=== PATIENT | male | born 1960 | race Caucasian/White ===

== ENCOUNTER 2016-10-20 19:27 | Emergency (ER) | payer MEDICARE ==
[2016-10-20 20:05] VITALS: BP 154/90
[2016-10-20] MEDS ORDERED: Ketorolac 60 MG/2 ML SDV IM ONE (21:09)
[2016-10-20] MEDS ORDERED: Baclofen 10 MG Tab PO ONE (21:10)
[2016-10-20] MEDS ORDERED: HYDROmorphone 2 MG Tab PO ONE (21:13)
--- NOTE | 2016-10-20 21:17 | EDM.PDOC ---
ED HPI LOWER BACK PAIN/INJURY - General Chief Complaint: Back Pain or Injury Stated Complaint: R HIP PAIN Time Seen by Provider: 10/20/16 20:50 Source: Reports: Patient History Limitations: Reports: No limitations - History of Present Illness INITIAL COMMENTS - FREE TEXT/NARRATIVE: Patient presents tonight for flare of low back pain with radiation to right hip and posterior right leg to right knee. Rico reports he takes chronic medications for low back pain which include narcotics, muscle relaxants and occasional ibuprofen. He denies injury, strain or sprain to his back or legs. He denies change in function or sensation to genitals or change in bowel/bladder habits. Location: Reports: lower, other (back with radiculopathy. ) Quality: Reports: Ache, Burning Severity: moderate Improves with: Reports: None Worsens with: Reports: Movement Associated Symptoms: Reports: Denies symptoms Treatment(s) REGIONAL ACCOUNT EXECUTIVE: Reports: Other (see below) (Narcotic pain medication. ) - Related Data Allergies/ADRs: Allergies Allergy/AdvReac Type Severity Reaction Status Date / Time No Known Allergies Allergy Verified 04/22/13 10:53 Home Meds: Home Meds Allopurinol [Zyloprim] 300 mg PO DAILY 04/22/13 [History] Cyclobenzaprine HCl [Flexeril] 10 mg PO Q8HR PRN 04/22/13 [History] Gabapentin [Neurontin] 600 mg PO TID 04/22/13 [History] Metoclopramide [Reglan] 10 mg PO Q8HR PRN 04/22/13 [History] Omeprazole 20 mg PO DAILY 04/22/13 [History] Ranitidine [Zantac] 150 mg PO BID 04/22/13 [History] Simvastatin [Zocor] 40 mg PO DAILY 04/22/13 [History] buPROPion HCl [Wellbutrin SR] 150 mg PO BID 04/22/13 [History] diphenhydrAMINE HCl [Diphenhydramine HCl] 50 mg PO BEDTIME PRN 04/22/13 [History ] oxyCODONE HCl/Acetaminophen [Percocet 10-325 MG] 1 each PO Q6HR PRN 04/22/13 [ History] traMADol HCl [Rybix ODT] 50 mg PO Q6H PRN 04/22/13 [History] Past Medical History Cardiovascular History: Reports: High cholesterol Gastrointestinal History: Reports: GERD, PUD Musculoskeletal History: Reports: Back pain, chronic, Gout, Other (see below) Other Musculoskeletal History: Left leg injury causing poor motor control. Degenerative disc disease Neurological History: Reports: Migraines - Past Surgical History GI Surgical History: Reports: Appendectomy, Cholecystectomy Social & Family History - Tobacco Use Smoking Status *Q: Current Every Day Smoker Years of Tobacco use: 40 Packs/Tins Daily: 1 Used Tobacco, but Quit: No Second Hand Smoke Exposure: No - Caffeine Use Caffeine Use: Reports: Coffee - Alcohol Use Days Per Week of Alcohol Use: 0 - Recreational Drug Use Recreational Drug Use: No ED ROS GENERAL - Review of Systems Review Of Systems: See Below Constitutional: Reports: no symptoms. Denies: fever, chills, malaise, weakness , fatigue HEENT: Reports: No symptoms Respiratory: Reports: No Symptoms Cardiovascular: Reports: No symptoms. Denies: Chest pain, Dyspnea on exertion, Edema, Palpitations, PND, Syncope Endocrine: Reports: no symptoms GI/Abdominal: Reports: No symptoms. Denies: Abdominal pain, Black stool, Bloody stool, Nausea, Vomiting : Reports: no symptoms. Denies: dysuria, flank pain, frequency, hematuria, incontinence, pain, urinary retention Musculoskeletal: Reports: other (low back pain with radiation to right hip and right posterior thigh. ) Neurological: Reports: No Symptoms. Denies: Headache, Numbness, Paresthesia, Tingling, Weakness, Gait Disturbance Psychiatric: Reports: No symptoms Hematologic/Lymphatic: Reports: no symptoms Immunologic: Reports: no symptoms ED EXAM,LOWER BACK PAIN/INJURY - Physical Exam Exam: See Below Exam Limited By: No limitations General Appearance: alert, WD/WN, no apparent distress Eye Exam: bilateral eye: normal inspection Head: atraumatic, normocephalic Neck: normal inspection, supple, non-tender, full range of motion Respiratory/Chest: no respiratory distress, lungs clear, normal breath sounds, no accessory muscle use, chest non-tender Cardiovascular: normal peripheral pulses, regular rate, rhythm, no edema, no gallop, no murmur, no rub GI/Abdominal: normal bowel sounds, soft, non tender, no organomegaly, no distention, no abnormal bruit, no mass Back Exam: normal inspection, decreased range of motion, muscle spasm, other ( No foot drop, loss of sensation noted to bilateral lower extremities. He does ambulate with a limping gait with transfer from stretcher to standing and walking. No unsteadiness noted. ). No: CVA tenderness (R), CVA tenderness (L), paraspinal tenderness, vertebral tenderness Neurological: alert, normal mood/affect, normal dorsiflexion, CN II-XII intact, normal plantar flexion, no motor/sensory deficits, oriented x 3, tremor. No: difficulty walking DTR - Lower Extremities: 2+: knee (R), knee (L) Psychiatric: normal affect, normal mood Skin Exam: Warm, Dry, Intact, Normal color, No rash Lymphatic: no adenopathy Course - Vital Signs Last Recorded V/S: Last Vital Signs Temp 37.1 C 10/20/16 19:50 Pulse 102 H 10/20/16 19:50 Resp 18 10/20/16 19:50 BP 154/90 H 10/20/16 19:50 Pulse Ox 94 L 10/20/16 19:50 - Orders/Labs/Meds Meds: Medications Discontinued Medications Generic Name Dose Route Start Last Admin Trade Name Lennie PRN Reason Stop Dose Admin Baclofen 10 mg 10/20/16 21:10 10/20/16 21:21 Lioresal PO 10/20/16 21:11 10 mg ONETIME ONE Administration Hydromorphone HCl 2 mg 10/20/16 21:13 10/20/16 21:21 Dilaudid PO 10/20/16 21:14 2 mg ONETIME ONE Administration Ketorolac Tromethamine 60 mg 10/20/16 21:09 10/20/16 21:22 Toradol IM 10/20/16 21:10 60 mg ONETIME ONE Administration - Re-Assessments/Exams Free Text/Narrative Re-Assessment/Exam: 10/20/16 22:09 Patient denies routine use of NSAID. He does report taking "double my pain pills" with a flare of pain. This results with a decrease in doses in the days following the pain flare due to his pain contract and not being able to fill prescriptions early. Rico was provided education for proper management and instruction to follow up with Dr. Martinez to review his status. Departure - Departure Time of Disposition: 21:50 Disposition: Home, Self-Care 01 Condition: fair Clinical Impression: Chronic back pain Instructions: Chronic Back Pain Referrals: Elijah Martinez MD [Primary Care Provider] - Forms: ED Department Discharge Additional Instructions: Patient will follow up with Dr. Martinez tomorrow or as early this week that he is able. He will notify Dr. Martinez that he has been taking more of his chronic pain medication for flare-ups. Rico will stop use of ibuprofen and cyclobenzaprine. He will start use of Naproxen 500mg PO twice per day. He will start use of Baclofen 5mg PO three times a day for seven days, then Baclofen 10mg PO three times a day. He may use rest, ice, heat and stretching for his pain. He will need to obtain additional pain medication, muscle relaxant from Dr. Martinez.
== END 2016-10-20 22:20 | disposition home or self-care (01) ==
LOC: JP.ED 19:27
DX: M54.9 Dorsalgia, unspecified (principal); G89.29 Other chronic pain; E78.00 Pure hypercholesterolemia, unspecified; K21.9 Gastro-esophageal reflux disease without esophagitis; F17.210 Nicotine dependence, cigarettes, uncomplicated; Z90.49 Acquired absence of other specified parts of digestive tract; Z79.899 Other long term (current) drug therapy
CPT/HCPCS: 96372; 99283; A9270; J1885; 99284

== ENCOUNTER 2017-05-13 08:30 | Inpatient (IN) | payer MEDICARE ==
[2017-05-13] MEDS ORDERED: Lactated Ringers 1,000 ML IV SCH (10:00)
[2017-05-13] MEDS ORDERED: Scopolamine 1.5 MG Transdermal Patch TOP SCH (10:00)
[2017-05-13] MEDS ORDERED: Gabapentin 300 MG Cap PO ONE (10:00)
[2017-05-13] MEDS ORDERED: Propofol 200 MG/20 ML SDV ONE ×2 (10:27→12:54)
[2017-05-13] MEDS ORDERED: Ondansetron 4 MG/2 ML SDV ONE (10:27)
[2017-05-13] MEDS ORDERED: Succinylcholine 200 MG/10 ML MDV ONE (10:27)
[2017-05-13] MEDS ORDERED: Dexamethasone 4 MG/ML SDV ONE (10:27)
[2017-05-13] MEDS ORDERED: Rocuronium 50 MG/5 ML Vial ONE ×2 (10:27→14:10)
[2017-05-13] MEDS ORDERED: ceFAZolin 2 GM in Premix Bag 1 BAG IV ONE (11:00)
[2017-05-13] MEDS ORDERED: ceFAZolin 2 GM in Sodium Chloride 0.9% 50 ML IV ONE (11:00)
[2017-05-13] MEDS ORDERED: Ketamine 500 MG/5 ML MDV IV SCH (11:15)
[2017-05-13] MEDS ORDERED: Ropivacaine 49.25 ML, Ketorolac 30 MG, EPINEPHrine 0.5 MG, cloNIDine 80 MCG, Sodium Chl... INJECT ONE ×5 (11:15)
[2017-05-13] MEDS ORDERED: Thrombin (Bovine) 5,000 Unit Kit ONE (12:20)
[2017-05-13] MEDS ORDERED: Povidone-Iodine 10% Soln 118.25 ML Bottle ONE (12:20)
[2017-05-13] MEDS: Tranexamic Acid 1,000 MG in Sodium Chloride 0.9% 50 ML IV SCH ×3 (13:30→16:03)
[2017-05-13] MEDS ORDERED: Glycopyrrolate 0.2 MG/ML 5 ML MDV ONE (14:11)
[2017-05-13] MEDS ORDERED: Neostigmine Methylsulfate 1 MG/ML 5 ML Syringe ONE (14:11)
[2017-05-13] MEDS ORDERED: Lactated Ringers 1,000 ML ONE (14:34)
[2017-05-13] MEDS ORDERED: Zolpidem 5 MG Tab PO PRN (15:05)
[2017-05-13] MEDS ORDERED: Naloxone 0.4 MG/ML SDV IVPUSH PRN (15:05)
[2017-05-13] MEDS ORDERED: Aluminum Hydroxide/Magnesium Hydroxide/Simethicone Susp 30 ML Cup PO PRN (15:05)
[2017-05-13] MEDS ORDERED: Magnesium Hydroxide 400 MG/5 ML Susp 30 ML Cup PO PRN (15:05)
[2017-05-13] MEDS ORDERED: HYDROmorphone 1 MG/ML Syringe IVPUSH PRN (15:05)
[2017-05-13] MEDS ORDERED: DIPHENHYDRAMINE HCL 50 MG PO PRN (15:07)
[2017-05-13] MEDS: Ondansetron 4 MG/2 ML SDV IVPUSH PRN ×2 (15:12→22:24)
[2017-05-13] MEDS ORDERED: Acetaminophen 1,000 MG in Premix Bag 1 BAG IV ONE (15:15)
[2017-05-13] MEDS ORDERED: ceFAZolin 1 GM in Sodium Chloride 0.9% 50 ML IV SCH (15:15)
[2017-05-13] MEDS ORDERED: diphenhydrAMINE 25 MG Cap PO PRN (15:45)
[2017-05-13] MEDS: oxyCODONE 5 MG Tab PO PRN ×2 (17:08→21:28)
--- NOTE | 2017-05-13 18:32 | OR ---
DATE OF PROCEDURE: 05/13/2017 PREOPERATIVE DIAGNOSES: 1. L4-L5 stenosis. 2. Morbid obesity. POSTOPERATIVE DIAGNOSES: 1. L4-L5 stenosis. 2. Morbid obesity. PROCEDURES: 1. L4-L5 laminectomy. 2. Extended case secondary to morbid obesity. 3. Use of operating microscope. AMMUNITION ASSEMBLY LABORER: ROB Ho. Physician retail store assistant, Shiloh Elmore NP, played an essential role in assisting in this case, helping to position the patient, retract structures as needed, as well as suturing and cutting sutures as indicated. Her presence improved patient's safety and decreased operative time. ANESTHESIA: General endotracheal intubation. FLUID: Lactated Ringer solution. ESTIMATED BLOOD LOSS: 25 mL. COMPLICATIONS: None. SPECIMEN: None. DISCHARGE DISPOSITION: Stable to PACU. INDICATION FOR THE PROCEDURE: The patient was seen preoperatively in the clinic. He had been to multiple surgeons. He had failed nonoperative treatment. Preoperative imaging confirmed the above-mentioned diagnosis. Risks and benefits of the procedure were explained to the patient. Informed consent was obtained. DETAILS OF PROCEDURE: The patient was seen preoperatively by myself and the Anesthesia staff in the preoperative holding area where the operative site was marked. He was brought to the operative suite by the anesthesia staff where general anesthesia was administered. He had a sterile Manuel catheter placed which was removed right after the end of the case. He was flipped into a prone position on the Anup table. All extremities were found to be well padded. The bed was then flexed. The patient was then prepped and draped in a sterile manner. Time-out was called identifying the correct patient, correct procedure, the correct site, and antibiotics had begun within appropriate period of time. AP and lateral fluoroscopy were used to visualize the pedicles of L4 and L5. A midline incision was made over the processes of L4 and L5 and carried down to the deep fascia. Bleeding was controlled during the case with Bovie electrocautery as well as an Aquamantys 5.3, and then Cerebellar was used for retraction. After we encountered the deep fascia, bleeding was controlled with Bovie electrocautery and we then used a Franco elevator to go down over the spinous processes of L4 and L5 and over the respective lamina down to the level of the facets. I then inserted two 85 mm blades for retraction on the Versa-Trac and then removed any soft tissue off the lamina of L4 and L5. I then identified the interspinous space at L4- L5 and then removed the interspinous ligament and removed the inferior aspect of the spinous process of L4 down and then with rongeurs, I was able to remove the caudal 3/4 of the L4 lamina. I then used Kerrison rongeurs to remove the remainder of the lamina on the right side of the ligamentum flavum using Kerrison rongeurs of the long ball protecting the dura with cottonoid. I then did a medial facetectomy at L4-L5 on the right and was barely able to pass the long ball through the L4-L5 foramen. I then drilled down on the dorsal aspect of the medial portion of the facet, so that I could bite more of the foramen and then using #2 and #3 Kerrisons, went into the foramen more. I then used foraminal rasps at that point to end of the foramen. After the foraminal rasps had been used and the foramen was widened, I then used the operating microscope to carefully visualize the lateral aspect of the dura. It was very bulbous, I could see the exiting L5 root and just the caudal portion of the exiting L4 root. I used a Kerrison to remove a little bit more of that bone around the foramen and provided more room for the exiting L4 root. I was able to find some disk material which was free-floating and then was able to find a rent in the annulus on the right at L4-L5 in the disk space. I was then able to go in the disk space with a little bit of free disk and using a long ball, felt for any other free disk material using straight pituitaries as well as a Peapod pituitary. After this had been accomplished, I then copiously irrigated with 2 L of Betadine infused irrigation and applied FloSeal to the epidural space and then tamped any excess away with a Ray-Petra and then applied Gelfoam powder. We then closed with #1 Stratafix, followed by #2 Stratafix, followed by 3-0 Stratafix, followed by sterile dressing. The patient was then flipped back into his hospital bed in supine position. The Manuel catheter was removed. He was allowed to go to PACU in stable condition. Fredi Bangura DO /[id number]
[2017-05-13] MEDS: Gabapentin 300 MG Cap PO SCH (20:02)
[2017-05-13] MEDS: Sennosides 8.6 MG Tab PO PRN (20:02)
[2017-05-13] MEDS: Diazepam 5 MG Tab PO PRN (20:02)
[2017-05-13] MEDS: ceFAZolin 2 GM in Sodium Chloride 0.9% 50 ML IV SCH (20:02)
[2017-05-13] MEDS: buPROPion 150 MG Tab.SR PO SCH (20:03)
[2017-05-14] MEDS: oxyCODONE 5 MG Tab PO PRN ×2 (02:06→06:00)
[2017-05-14] MEDS: ceFAZolin 2 GM in Sodium Chloride 0.9% 50 ML IV SCH ×2 (03:34→11:04)
[2017-05-14] MEDS: Diazepam 5 MG Tab PO PRN (04:35)
[2017-05-14] MEDS ORDERED: Pantoprazole 40 MG Tab.CR PO SCH (07:30)
[2017-05-14] MEDS: Gabapentin 300 MG Cap PO SCH (08:33)
[2017-05-14] MEDS: buPROPion 150 MG Tab.SR PO SCH (08:33)
[2017-05-14] MEDS ORDERED: Allopurinol 300 MG Tab PO SCH (09:00)
[2017-05-14] MEDS ORDERED: Simvastatin 20 MG Tab PO SCH ×2 (09:00→17:00)
[2017-05-14] MEDS ORDERED: Acetaminophen/oxyCODONE 325-5 MG Tab PO PRN (10:30)
[2017-05-14] MEDS: Sennosides 8.6 MG Tab PO PRN (10:51)
[2017-05-14 11:02] VITALS: BP 125/63
--- NOTE | 2017-05-15 10:05 | PCM.DCSUM1 ---
Discharge Summary - Hospital Course Free Text/Narrative:: Patient is status postop day 1 of a lumbar laminectomy. He is doing very well. Patient is ablated with going difficulties. Pain is under control with oral pain medication. - Discharge Data Discharge Date: 05/14/17 Discharge Disposition: Home, Self-Care 01 Condition: Good - Patient Summary/Data Consults: Consultations 05/13/17 15:05 OT Evaluation and Treatment [CONS] Routine Please Evaluate and Treat. OT Reason for Consult: Strengthening This query below is only for informational purposes and is not editable. PT Evaluation and Treatment [CONS] Routine Please Evaluate and Treat. PT Reason for Consult: Strengthening This query below is only for informational purposes and is not editable. - Patient Instructions Diet: Usual Diet as Tolerated Driving: Do Not Drive Showering/Bathing: May Shower, No Tub Bathing/Swimming Wound/Incision Care: Keep Operative Site/Wound Site Clean and Dry, Change Dressing Daily Notify Provider of: Fever, Increased Pain, Swelling and Redness, Drainage, Nausea and/or Vomiting - Discharge Plan Prescriptions/Med Rec: Acetaminophen/oxyCODONE [Percocet 325-5 MG] 1 - 2 tab PO Q4H PRN #90 tablet PRN Reason: Pain Home Medications: Home Meds Allopurinol [Zyloprim] 300 mg PO DAILY 04/22/13 [History] Cyclobenzaprine HCl [Flexeril] 10 mg PO Q8HR PRN 04/22/13 [History] Gabapentin [Neurontin] 600 mg PO TID 04/22/13 [History] Metoclopramide [Reglan] 10 mg PO Q8HR PRN 04/22/13 [History] Omeprazole 20 mg PO DAILY 04/22/13 [History] Ranitidine [Zantac] 150 mg PO BID 04/22/13 [History] Simvastatin [Zocor] 40 mg PO DAILY 04/22/13 [History] buPROPion HCl [Wellbutrin SR] 150 mg PO BID 04/22/13 [History] diphenhydrAMINE HCl [Diphenhydramine HCl] 50 mg PO BEDTIME PRN 04/22/13 [History ] oxyCODONE HCl/Acetaminophen [Percocet 10-325 MG] 1 each PO Q6HR PRN 04/22/13 [ History] traMADol HCl [Rybix ODT] 50 mg PO Q6H PRN 04/22/13 [History] Acetaminophen/oxyCODONE [Percocet 325-5 MG] 1 - 2 tab PO Q4H PRN #90 tablet [Rx] Patient Handouts: Acetaminophen; Oxycodone tablets, Preventing Constipation After Surgery, Lumbar Laminectomy, Care After Referrals: Fredi Bangura DO [Physician] - 05/26/17 9:00 am - Discharge Summary/Plan Comment DC Time >30 min.: Yes Discharge Summary/Plan Comment: At this time we'll DC the patient to home per self-care. He will continue with oral pain medication. I will send him home on Percocet. He is to follow-up in [address] Bangura. He is to notify us if he has any other issues in the meantime. - Patient Data Vitals - Most Recent: Last Vital Signs Temp 37.7 C 05/14/17 10:59 Pulse 95 05/14/17 10:59 Resp 18 05/14/17 10:59 BP 125/63 05/14/17 10:59 Pulse Ox 98 05/14/17 10:59 Weight - Most Recent: 265 lb 6.4 oz Med Orders - Current: Current Medications Discontinued Medications Al Hydroxide/Mg Hydroxide (Mag-Al Plus) 30 ml PO Q4H PRN PRN Reason: Indigestion Allopurinol (Zyloprim) 300 mg PO DAILY [facility] Last Admin: 05/14/17 08:33 Dose: 300 mg Bupropion HCl (Wellbutrin Sr) 150 mg PO BID [facility] Last Admin: 05/14/17 08:33 Dose: 150 mg Ropivacaine 49.25 ml/Ketorolac Tromethamine 30 mg/Epinephrine HCl 0.5 mg/ Clonidine HCl 80 mcg/ Sodium Chloride 48.45 ml 0 ml INJECT ONETIME ONE Stop: 05/13/17 11:16 Last Admin: 05/13/17 14:31 Dose: 100 ml Dexamethasone (Dexamethasone) Confirm Administered Dose 4 mg .ROUTE .STK-MED ONE Stop: 05/13/17 10:28 Diazepam (Valium.) 5 mg PO Q6H PRN PRN Reason: Spasms Last Admin: 05/14/17 04:35 Dose: 5 mg Diphenhydramine HCl (Benadryl) 50 mg PO BEDTIME PRN PRN Reason: Sedation Last Admin: 05/14/17 00:05 Dose: 50 mg Fentanyl Citrate (Fentanyl) Confirm Administered Dose 500 mcg .ROUTE .STK-MED ONE Stop: 05/13/17 10:27 Gabapentin (Neurontin) 300 mg PO ONETIME ONE Stop: 05/13/17 10:01 Last Admin: 05/13/17 09:57 Dose: 300 mg Gabapentin (Neurontin) 600 mg PO TID [facility] Last Admin: 05/14/17 08:33 Dose: 600 mg Glycopyrrolate (Robinul) Confirm Administered Dose 1 mg .ROUTE .STK-MED ONE Stop: 05/13/17 14:12 Hydromorphone HCl (Dilaudid) 1 mg IVPUSH Q2H PRN PRN Reason: Pain Stop: 05/14/17 15:05 Last Admin: 05/14/17 00:05 Dose: 1 mg Lactated Ringer's (Ringers, Lactated) 1,000 mls @ 0 mls/hr IV ASDIRECTED [facility] PRN Reason: KVO Last Admin: 05/13/17 09:58 Dose: 100 mls/hr Cefazolin Sodium 2 gm/ Sodium (Chloride) 50 mls @ 100 mls/hr IV ONETIME ONE Stop: 05/13/17 11:29 Last Admin: 05/13/17 12:58 Dose: 100 mls/hr Tranexamic Acid 1,000 mg/ (Sodium Chloride) 60 mls @ 240 mls/hr IV Q3H [facility] Stop: 05/13/17 14:29 Last Admin: 05/13/17 16:03 Dose: Not Given Ketamine HCl 100 mg/ Sodium (Chloride) 100 mls @ 21 mls/hr IV ASDIRECTED [facility] Lactated Ringer's (Ringers, Lactated) Confirm Administered Dose 1,000 mls @ as directed .ROUTE .STK-MED ONE Stop: 05/13/17 14:35 Acetaminophen 1,000 mg/ Premix 100 mls @ 400 mls/hr IV NOW ONE Stop: 05/13/17 15:29 Last Admin: 05/13/17 15:15 Dose: 400 mls/hr Cefazolin Sodium 1 gm/ Sodium (Chloride) 50 mls @ 100 mls/hr IV Q8H [facility] Stop: 05/14/17 07:44 Cefazolin Sodium 2 gm/ Sodium (Chloride) 50 mls @ 100 mls/hr IV Q8H [facility] Stop: 05/14/17 12:29 Last Admin: 05/14/17 11:04 Dose: 100 mls/hr Ketamine HCl (Ketalar) 35 mg IV ASDIRECTED [facility] Magnesium Hydroxide (Milk Of Magnesia) 30 ml PO BID PRN PRN Reason: Constipation Naloxone HCl (Narcan) 0.2 mg IVPUSH ASDIRECTED PRN PRN Reason: Oversedation Stop: 05/13/17 23:45 Neostigmine Methylsulfate (Neostigmine) Confirm Administered Dose 5 mg .ROUTE .STK-MED ONE Stop: 05/13/17 14:12 Ondansetron HCl (Zofran) Confirm Administered Dose 4 mg .ROUTE .STK-MED ONE Stop: 05/13/17 10:28 Ondansetron HCl (Zofran) 8 mg IVPUSH Q4H PRN PRN Reason: Nausea/Vomiting Last Admin: 05/13/17 22:24 Dose: 8 mg Oxycodone HCl (Oxycodone) 10 mg PO Q4H PRN PRN Reason: Pain Stop: 05/14/17 15:05 Last Admin: 05/14/17 06:00 Dose: 10 mg Oxycodone/Acetaminophen (Percocet 325-5 Mg) 2 tab PO Q4H PRN PRN Reason: Pain Last Admin: 05/14/17 10:51 Dose: 2 tab Pantoprazole Sodium (Protonix) 40 mg PO ACBREAKFAST [facility] Last Admin: 05/14/17 08:33 Dose: 40 mg Povidone Iodine (Betadine 10% Soln) Confirm Administered Dose 1 ml .ROUTE .STK- MED ONE Stop: 05/13/17 12:21 Propofol (Diprivan 20 Ml) Confirm Administered Dose 200 mg .ROUTE .STK-MED ONE Stop: 05/13/17 10:28 Propofol (Diprivan 20 Ml) Confirm Administered Dose 400 mg .ROUTE .STK-MED ONE Stop: 05/13/17 12:55 Ranitidine HCl (Zantac) 150 mg PO BID [facility] Last Admin: 05/14/17 08:33 Dose: 150 mg Rocuronium Howe (Zemuron) Confirm Administered Dose 50 mg .ROUTE .STK-MED ONE Stop: 05/13/17 10:28 Rocuronium Howe (Zemuron) Confirm Administered Dose 50 mg .ROUTE .STK-MED ONE Stop: 05/13/17 14:11 Scopolamine (Transderm-Scop) 1.5 mg TOP Q72H [facility] Stop: 05/16/17 03:00 Last Admin: 05/13/17 10:19 Dose: 1.5 mg Senna (Senna) 8.6 mg PO BID PRN PRN Reason: Constipation Last Admin: 05/14/17 10:51 Dose: 8.6 mg Simvastatin (Zocor) 40 mg PO DAILY CHE Simvastatin (Zocor) 40 mg PO QPM [facility] Succinylcholine Chloride (Quelicin) Confirm Administered Dose 200 mg .ROUTE .STK -MED ONE Stop: 05/13/17 10:28 Thrombin (Thrombin-Jmi) Confirm Administered Dose 15,000 unit .ROUTE .STK-MED ONE Stop: 05/13/17 12:21 Last Admin: 05/13/17 13:40 Dose: 10,000 unit Zolpidem Tartrate (Ambien) 5 mg PO BEDTIME PRN PRN Reason: Sleep Last Admin: 05/13/17 21:37 Dose: 5 mg - Exam General: Reports: Alert Back Exam: Reports: Normal Inspection Extremities: Normal Inspection, Normal Range of Motion, No Pedal Edema, Normal Capillary Refill Skin: Reports: Warm, Dry, Intact Wound/Incisions: Reports: Healing Well, Dressing Dry and Intact Neurological: Reports: No New Focal Deficit, Normal Gait, Strength Equal Bilateral, Reflexes Equal Bilateral Psy/Mental Status: Reports: Alert *Q Meaningful Use (DIS) - VTE *Q VTE Criteria *Q: - Stroke *Q Stroke Criteria *Q: - AMI *Q AMI Criteria *Q:
== END 2017-05-14 13:30 | disposition home or self-care (01) | DRG 517 ==
LOC: EDSTATUS 08:30 → JP.MS 09:17 → JP.SDS 09:17 → JP.MS 15:45
PROVIDERS: ADMIT Orthopaedic Surgery; ATTEND Orthopaedic Surgery
PROC: 0QB00ZZ Excision of Lumbar Vertebra, Open Approach (ICD-10-PCS; principal; 2017-05-13)
DX: M48.061 Spinal stenosis, lumbar region without neurogenic claudication (principal); E66.01 Morbid (severe) obesity due to excess calories; Z68.39 Body mass index [BMI] 39.0-39.9, adult; F17.210 Nicotine dependence, cigarettes, uncomplicated; G89.29 Other chronic pain; K21.9 Gastro-esophageal reflux disease without esophagitis; M10.9 Gout, unspecified; E78.5 Hyperlipidemia, unspecified
CPT/HCPCS: 97116-GP; 97161-GP; 97530-GP; A9270-GY; J0131; J0171; J0330; J0690; J0735; J1100; J1170; J1885; J2405; J2704; J2710; J2795; J3010; J7030; J7050; J7120

== ENCOUNTER 2017-10-25 17:07 | Emergency (ER) | payer MEDICARE ==
[2017-10-25 17:18] VITALS: BP 186/96
--- NOTE | 2017-10-25 18:36 | EDM.PDOC ---
ED HPI GENERAL MEDICAL PROBLEM - General Chief Complaint: Neuro Symptoms/Deficits Stated Complaint: SLURRING WORDS Time Seen by Provider: 10/25/17 17:20 Source of Information: Reports: Patient History Limitations: Reports: No Limitations - History of Present Illness INITIAL COMMENTS - FREE TEXT/NARRATIVE: 57-year-old male who for the past 4 hours has had right-sided weakness, dysarthria, and dizziness. It started roughly 4 hours ago with mild dizziness and just general malaise so he decided to lay down for a while. When he woke at 2:30, symptoms were not better in fact now he has developed discoordination of his right arm, weakness of the arm and leg, and slurred speech. No visual complaints or headache. When symptoms persisted he decided to come in and have it checked out. Onset: Gradual Duration: Hour(s): (Symptoms have been ongoing for the past 4 or 5 hours) Severity: Moderate Associated Symptoms: Reports: Other (Has chronic back pain). Denies: Fever/ Chills, Shortness of Breath general Pain Score (Numeric/FACES): 4 - Related Data Allergies Allergy/AdvReac Type Severity Reaction Status Date / Time No Known Allergies Allergy Verified 10/25/17 17:13 Home Meds: Home Meds Allopurinol [Zyloprim] 300 mg PO DAILY 04/22/13 [History] Cyclobenzaprine HCl [Flexeril] 10 mg PO Q8HR PRN 04/22/13 [History] Gabapentin [Neurontin] 600 mg PO TID 04/22/13 [History] Metoclopramide [Reglan] 10 mg PO Q8HR PRN 04/22/13 [History] Omeprazole 20 mg PO DAILY 04/22/13 [History] Ranitidine [Zantac] 150 mg PO BID 04/22/13 [History] Simvastatin [Zocor] 40 mg PO DAILY 04/22/13 [History] buPROPion HCl [Wellbutrin SR] 150 mg PO BID 04/22/13 [History] diphenhydrAMINE HCl [Diphenhydramine HCl] 50 mg PO BEDTIME PRN 04/22/13 [History ] oxyCODONE HCl/Acetaminophen [Percocet 10-325 MG] 1 each PO Q6HR PRN 04/22/13 [ History] traMADol HCl [Rybix ODT] 50 mg PO Q6H PRN 04/22/13 [History] Past Medical History HEENT History: Reports: Impaired Vision Cardiovascular History: Reports: High Cholesterol Respiratory History: Reports: Sleep Apnea Gastrointestinal History: Reports: Cholelithiasis, GERD, PUD Genitourinary History: Reports: Renal Calculus Musculoskeletal History: Reports: Other (See Below) Other Musculoskeletal History: s/p Laminectomy 05/13/17 Neurological History: Reports: Migraines Endocrine/Metabolic History: Reports: Obesity/BMI 30+ - Infectious Disease History Infectious Disease History: Reports: Chicken Pox - Past Surgical History HEENT Surgical History: Reports: None Cardiovascular Surgical History: Reports: None Respiratory Surgical History: Reports: None GI Surgical History: Reports: Appendectomy, Cholecystectomy, Colonoscopy, EGD Male Surgical History: Reports: None Endocrine Surgical History: Reports: None Neurological Surgical History: Reports: Lumbar Spine Musculoskeletal Surgical History: Reports: None Social & Family History - Tobacco Use Smoking Status *Q: Current Every Day Smoker Years of Tobacco use: 40 Packs/Tins Daily: 0.5 Used Tobacco, but Quit: No Month/Year Tobacco Last Used: April Second Hand Smoke Exposure: Yes - Caffeine Use Caffeine Use: Reports: Coffee, Soda, Tea - Alcohol Use Days Per Week of Alcohol Use: 0 - Recreational Drug Use Recreational Drug Use: No ED ROS GENERAL - Review of Systems Review Of Systems: See Below Constitutional: Denies: Fever, Chills, Malaise HEENT: Denies: Vision Change Respiratory: Denies: Shortness of Breath GI/Abdominal: Denies: Abdominal Pain, Nausea, Vomiting : Reports: No Symptoms Musculoskeletal: Reports: Back Pain Skin: Reports: No Symptoms Neurological: Reports: Dizziness, Change in Speech (No aphasia, does have dysarthria), Other (Reproducible weakness of the right arm and leg compared to the left, with right facial weakness). Denies: Headache Psychiatric: Reports: No Symptoms ED EXAM, NEURO - Physical Exam Exam: See Below Exam Limited By: No Limitations General Appearance: Alert, No Apparent Distress, Anxious Eye Exam: Bilateral Eye: EOMI, Other (There was mild right visual field deficit) Throat/Mouth: Other (Right perioral and periorbital muscles were weaker with some right facial droop.) Head Exam: Atraumatic Neck: Normal Inspection Respiratory/Chest: No Respiratory Distress, Lungs Clear Cardiovascular: Regular Rate, Rhythm GI/Abdominal: Non-Tender Neurological: Alert, Normal Mood/Affect, Other (Patient had reproducible weakness of the right arm and leg compared to the left) Psychiatric: Normal Affect, Normal Mood Skin Exam: Warm, Dry EKG INTERPRETATION Rhythm: NSR Course - Vital Signs Last Recorded V/S: Last Vital Signs Temp 98.2 F 10/25/17 17:21 Pulse 106 H 10/25/17 17:21 Resp 17 10/25/17 17:21 BP 186/96 H 10/25/17 17:21 Pulse Ox 97 10/25/17 17:21 - Orders/Labs/Meds Orders: Active Orders 24 hr Category Date Time Status EKG Documentation Completion [RC] ASDIRECTED Care 10/25/17 17:16 Active Head wo Cont [CT] Stat Exams 10/25/17 17:16 Taken Labs: Laboratory Tests 10/25/17 10/25/17 10/25/17 Range/Units 17:28 17:28 17:28 WBC 9.2 (4.5-11.0) K/uL RBC 4.74 (4.30-5.90) M/uL Hgb 14.6 (12.0-15.0) g/dL Hct 43.3 (40.0-54.0) % MCV 91 (80-98) fL MCH 31 (27-31) pg MCHC 34 (32-36) % Plt Count 280 (150-400) K/uL Neut % (Auto) 62 (36-66) % Lymph % (Auto) 29 (24-44) % [place] % (Auto) 7 H (2-6) % Eos % (Auto) 3 (2-4) % Baso % (Auto) 0 (0-1) % PT 10.7 (9.5-12.0) sec INR 1.00 (0.80-1.20) Sodium 137 L (140-148) mmol/L Potassium 3.9 (3.6-5.2) mmol/L Chloride 99 L (100-108) mmol/L Carbon Dioxide 29 (21-32) mmol/L Anion Gap 12.9 (5.0-14.0) mmol/L BUN 13 (7-18) mg/dL Creatinine 1.2 (0.8-1.3) mg/dL Est Cr Clr Drug Dosing 66.28 mL/min Estimated GFR (MDRD) > 60 (>60) Glucose 119 H (74-106) mg/dL Calcium 9.0 (8.5-10.1) mg/dL Total Bilirubin 0.4 D (0.2-1.0) mg/dL AST 19 (15-37) U/L ALT 31 (12-78) U/L Alkaline Phosphatase 101 (46-116) U/L Total Protein 7.8 (6.4-8.2) g/dL Albumin 4.2 (3.4-5.0) g/dL Globulin 3.6 H (2.3-3.5) g/dL Albumin/Globulin Ratio 1.2 (1.2-2.2) Meds: Medications Discontinued Medications Generic Name Dose Route Start Last Admin Trade Name Freq PRN Reason Stop Dose Admin Alteplase, Recombinant Confirm 10/25/17 17:40 Activase Administered 10/25/17 17:41 Dose 100 mg .ROUTE .STK-MED ONE Alteplase, Recombinant 40 mg 10/25/17 17:40 Activase IV 10/25/17 17:41 ONETIME ONE Alteplase, Recombinant 50 mg 10/25/17 17:41 Activase IV 10/25/17 17:42 ONETIME ONE - Re-Assessments/Exams Free Text/Narrative Re-Assessment/Exam: 10/25/17 18:34 An IV was started and the patient was sent back for an emergent head CT. NIH stroke scale was 8. At that point air care was called and neurosurgical consultation was obtained through [place]. Head CT returned negative. Risks and benefits of tPA treatment was discussed briefly with the patient and family, and consented. 40 mg TPA bolus was given at the recommendation of neurology in [place], however the dose of 0.9 mg/kg was misunderstood and given as a bolus rather than as a 10% bolus. The post bolus drip was continued. This was discussed with neurology in [place]. CBC and CMP were unremarkable. Departure - Departure Time of Disposition: 18:00 Disposition: DC/Tfer to Acute Hospital 02 Condition: Fair Clinical Impression: Cerebrovascular accident (CVA) Qualifiers: CVA mechanism: unspecified Qualified Code(s): I63.9 - Cerebral infarction, unspecified - Discharge Information Referrals: Elijah Martinez MD [Primary Care Provider] - Forms: ED Department Discharge Care Plan Goals: Patient was urgently transferred by air to [place] for acute neurology interventional treatment for ischemic stroke. - My Orders Last 24 Hours: My Active Orders 10/25/17 17:16 EKG Documentation Completion [RC] ASDIRECTED Head wo Cont [CT] Stat - Assessment/Plan Last 24 Hours: My Active Orders 10/25/17 17:16 EKG Documentation Completion [RC] ASDIRECTED Head wo Cont [CT] Stat
== END 2017-10-25 17:50 ==
LOC: JP.ED 17:07
DX: I63.9 Cerebral infarction, unspecified (principal); E78.00 Pure hypercholesterolemia, unspecified; F17.210 Nicotine dependence, cigarettes, uncomplicated; Z79.899 Other long term (current) drug therapy; Z87.442 Personal history of urinary calculi; E66.9 Obesity, unspecified
CPT/HCPCS: 36415; 70450; 80053; 85025; 85610; 93005; 96374; 99285; J2997

== ENCOUNTER 2018-10-09 19:17 | Emergency (ER) | payer MEDICARE, MEDICAID ==
[2018-10-09] MEDS ORDERED: Sodium Chloride 0.9% 10 ML Syringe FLUSH PRN (19:49)
--- NOTE | 2018-10-09 20:03 | EDM.PDOC ---
ED HPI GENERAL MEDICAL PROBLEM - General Chief Complaint: Neuro Symptoms/Deficits Stated Complaint: SLURRED SPEECH,FEVER Time Seen by Provider: 10/09/18 19:40 - History of Present Illness INITIAL COMMENTS - FREE TEXT/NARRATIVE: 58-year-old male has a prior history of CVA approximately one year ago with some residual right-sided weakness. This morning he woke up with a headache which is generalized with pain level 6/10. He complains of generalized weakness and says that his weakness in the right arm and right leg are much more pronounced then usual today. He is also been having difficulty with finding words which is causing some speech slowness and his family has noticed the right side of his face seems to be drooping. He takes aspirin 325 mg daily but is not anticoagulated. His vision is unaffected. He is not having any dizziness. He also has a history of migraine headaches and chronic back pain. He is a current smoker. - Related Data Allergies Allergy/AdvReac Type Severity Reaction Status Date / Time No Known Allergies Allergy Verified 10/09/18 19:23 Home Meds: Home Meds Allopurinol [Zyloprim] 300 mg PO DAILY 04/22/13 [History] Cyclobenzaprine HCl [Flexeril] 10 mg PO Q8HR PRN 04/22/13 [History] Gabapentin [Neurontin] 600 mg PO TID 04/22/13 [History] Metoclopramide [Reglan] 10 mg PO Q8HR PRN 04/22/13 [History] Omeprazole 20 mg PO DAILY 04/22/13 [History] Ranitidine [Zantac] 150 mg PO BID 04/22/13 [History] Simvastatin [Zocor] 40 mg PO DAILY 04/22/13 [History] buPROPion HCl [Wellbutrin SR] 150 mg PO BID 04/22/13 [History] diphenhydrAMINE HCl [Diphenhydramine HCl] 50 mg PO BEDTIME PRN 04/22/13 [History ] oxyCODONE HCl/Acetaminophen [Percocet 10-325 MG] 1 each PO Q6HR PRN 04/22/13 [ History] traMADol HCl [Rybix ODT] 50 mg PO Q6H PRN 04/22/13 [History] Aspirin 1 tab PO DAILY 10/09/18 [History] Metoprolol Tartrate 50 mg PO BID 10/09/18 [History] Past Medical History HEENT History: Reports: Impaired Vision Cardiovascular History: Reports: High Cholesterol Respiratory History: Reports: Sleep Apnea Gastrointestinal History: Reports: Cholelithiasis, GERD, PUD Genitourinary History: Reports: Renal Calculus Musculoskeletal History: Reports: Other (See Below) Other Musculoskeletal History: s/p Laminectomy 05/13/17 Neurological History: Reports: CVA, Migraines, Other (See Below) Other Neuro History: cva 2018 Endocrine/Metabolic History: Reports: Obesity/BMI 30+ - Infectious Disease History Infectious Disease History: Reports: Chicken Pox - Past Surgical History HEENT Surgical History: Reports: None Cardiovascular Surgical History: Reports: None Respiratory Surgical History: Reports: None GI Surgical History: Reports: Appendectomy, Cholecystectomy, Colonoscopy, EGD Male Surgical History: Reports: None Endocrine Surgical History: Reports: None Neurological Surgical History: Reports: Lumbar Spine Musculoskeletal Surgical History: Reports: None Social & Family History - Family History Family Medical History: Noncontributory - Tobacco Use Smoking Status *Q: Current Every Day Smoker Years of Tobacco use: 45 Packs/Tins Daily: 0.5 - Caffeine Use Caffeine Use: Reports: Soda - Recreational Drug Use Recreational Drug Use: No ED ROS GENERAL - Review of Systems Review Of Systems: See Below Constitutional: Reports: Weakness, Fatigue HEENT: Denies: Rhinitis, Sinus Problem, Vertigo Respiratory: Reports: No Symptoms Cardiovascular: Reports: No Symptoms Endocrine: Reports: No Symptoms GI/Abdominal: Reports: No Symptoms Neurological: Reports: Headache, Trouble Speaking, Weakness, Change in Speech. Denies: Numbness, Paresthesia ED EXAM, NEURO - Physical Exam Exam: See Below Exam Limited By: No Limitations General Appearance: Alert Eye Exam: Bilateral Eye: Normal Inspection, PERRL, Vision Changes Ears: Normal External Exam Nose: Normal Inspection Throat/Mouth: Normal Inspection Head Exam: Atraumatic, Normocephalic Neck: Supple, Non-Tender Respiratory/Chest: No Respiratory Distress, Lungs Clear, Normal Breath Sounds Cardiovascular: Normal Peripheral Pulses, Regular Rate, Rhythm, No Edema, No Murmur GI/Abdominal: Normal Bowel Sounds, Soft, Non-Tender Neurological: Alert, Other (Speech is slightly slow. Right side of mouth is drooping. There is some right sided pronator drift. There is weakness of the right leg although he is able to lift and a half table.) Course - Vital Signs Last Recorded V/S: Last Vital Signs Temp 36.4 C 10/09/18 19:30 Pulse 84 10/09/18 21:23 Resp 25 H 10/09/18 21:23 BP 147/70 H 10/09/18 21:23 Pulse Ox 95 10/09/18 21:23 - Orders/Labs/Meds Orders: Active Orders 24 hr Category Date Time Status Assess Neurological Status [RC] CONTINUOUS Care 10/09/18 19:49 Inactive Blood Glucose Check, Bedside [RC] STAT Care 10/09/18 19:49 Inactive Cardiac Monitoring [RC] CONTINUOUS Care 10/09/18 19:49 Active Communication Order [RC] STAT Care 10/09/18 19:49 Inactive EKG Documentation Completion [RC] ASDIRECTED Care 10/09/18 19:50 Active Height and Weight [RC] UPON Care 10/09/18 19:49 Active NIH Stroke Scale [RC] STAT Care 10/09/18 19:49 Inactive Nursing Bedside Swallow Screen [RC] STAT Care 10/09/18 19:49 Inactive Oxygen Therapy, ED [RC] ASDIRECTED Care 10/09/18 19:49 Active Peripheral IV Care [RC] . DIRECTED Care 10/09/18 19:50 Active Peripheral IV Insertion Adult [OM.PC] Stat Oth 10/09/18 19:49 Ordered Peripheral IV Insertion Adult [OM.PC] Stat Oth 10/09/18 19:49 Ordered EKG 12 Lead [EK] Stat Ther 10/09/18 19:49 Ordered Labs: Laboratory Tests 10/09/18 10/09/18 10/09/18 Range/Units 19:49 20:00 20:00 WBC 13.0 H (4.5-11.0) K/uL RBC 4.89 (4.30-5.90) M/uL Hgb 15.1 H (12.0-15.0) g/dL Hct 46.2 (40.0-54.0) % MCV 95 (80-98) fL MCH 31 (27-31) pg MCHC 33 (32-36) % Plt Count 156 (150-400) K/uL Neut % (Auto) 81 H (36-66) % Lymph % (Auto) 11 L (24-44) % [place] % (Auto) 8 H (2-6) % Eos % (Auto) 0 L (2-4) % Baso % (Auto) 0 (0-1) % PT 11.9 (9.5-12.0) sec INR 1.09 (0.80-1.20) APTT 28.8 (27.0-36.0) sec Sodium 138 L (140-148) mmol/L Potassium 4.0 (3.6-5.2) mmol/L Chloride 97 L (100-108) mmol/L Carbon Dioxide 30 (21-32) mmol/L Anion Gap 15.0 H (5.0-14.0) mmol/L BUN 10 (7-18) mg/dL Creatinine 1.2 (0.8-1.3) mg/dL Est Cr Clr Drug Dosing 65.46 mL/min Estimated GFR (MDRD) > 60 (>60) Glucose 102 (74-106) mg/dL Calcium 9.2 (8.5-10.1) mg/dL Total Bilirubin 0.7 D (0.2-1.0) mg/dL AST 25 (15-37) U/L ALT 27 (12-78) U/L Alkaline Phosphatase 100 (46-116) U/L Troponin I < 0.017 (0.000-0.056) ng/mL Total Protein 7.7 (6.4-8.2) g/dL Albumin 3.8 (3.4-5.0) g/dL Globulin 3.9 H (2.3-3.5) g/dL Albumin/Globulin Ratio 1.0 L (1.2-2.2) Meds: Medications Discontinued Medications Generic Name Dose Route Start Last Admin Trade Name Freq PRN Reason Stop Dose Admin Sodium Chloride 100 mls @ 4 mls/sec 10/09/18 21:15 10/09/18 21:34 Normal Saline IV 4 mls/sec ASDIRECTED CHE Administration Iopamidol 100 ml 10/09/18 21:15 10/09/18 21:35 [id number] (76%) IV 100 ml . DIRECTED CHE Administration Sodium Chloride 10 ml 10/09/18 19:49 10/09/18 21:34 Saline Flush FLUSH 10 ml ASDIRECTED PRN Administration Keep Vein Open Departure - Departure Time of Disposition: 00:10 Disposition: DC/Tfer to Acute Hospital 02 Condition: Serious Clinical Impression: CVA (cerebral vascular accident) Qualifiers: CVA mechanism: unspecified Qualified Code(s): I63.9 - Cerebral infarction, unspecified - Discharge Information Referrals: Elijah Martinez MD [Primary Care Provider] - Forms: ED Department Discharge Additional Instructions: Transfer by ground ambulance to [facility] under care doctor Teri who is a hospitalist has accepted transfer of this patient. - My Orders Last 24 Hours: My Active Orders 10/09/18 19:49 Assess Neurological Status [RC] CONTINUOUS Blood Glucose Check, Bedside [RC] STAT Cardiac Monitoring [RC] CONTINUOUS Communication Order [RC] STAT Height and Weight [RC] UPON NIH Stroke Scale [RC] STAT Nursing Bedside Swallow Screen [RC] STAT Oxygen Therapy, ED [RC] ASDIRECTED Peripheral IV Insertion Adult [OM.PC] Stat Peripheral IV Insertion Adult [OM.PC] Stat EKG 12 Lead [EK] Stat 10/09/18 19:50 EKG Documentation Completion [RC] ASDIRECTED Peripheral IV Care [RC] . DIRECTED - Assessment/Plan Last 24 Hours: My Active Orders 10/09/18 19:49 Assess Neurological Status [RC] CONTINUOUS Blood Glucose Check, Bedside [RC] STAT Cardiac Monitoring [RC] CONTINUOUS Communication Order [RC] STAT Height and Weight [RC] UPON NIH Stroke Scale [RC] STAT Nursing Bedside Swallow Screen [RC] STAT Oxygen Therapy, ED [RC] ASDIRECTED Peripheral IV Insertion Adult [OM.PC] Stat Peripheral IV Insertion Adult [OM.PC] Stat EKG 12 Lead [EK] Stat 10/09/18 19:50 EKG Documentation Completion [RC] ASDIRECTED Peripheral IV Care [RC] . DIRECTED Assessment:: EKG was unremarkable. CT scan of the head shows an old left-sided lacunar infarct from one year ago but nothing acute. CTA scans of the head and neck were normal. The patient did not show any improvement of his symptoms. I contacted Dr. Vieyra at neurology department who felt that this patient did indeed suffer another CVA and although invasive intervention was not indicated he did need follow-up stroke care and requested that he be sent [place]. Patient is agreeable to this. Vital signs remains stable.
--- NOTE | 2018-10-09 20:28 | CRLCT ---
INDICATION: Right-sided weakness. Difficulty with speech. COMPARISON: 10/25/2017 TECHNIQUE: CT examination of the head was performed with 3 mm thick axial sections without intravenous contrast. Images were obtained from the vertex of the skull through the skull base, and I examined the images with the brain and bone windows. Please note that all CT scans at this facility use dose modulation, iterative reconstruction, and/or weight-based dosing when appropriate to reduce radiation dose to as low as reasonably achievable. FINDINGS: The brain is normal in appearance for the patient`s age on today`s study, with no sign of mass lesion, mass effect, hemorrhage, or edema. There is an old lacunar infarct in the posterior limb of the internal capsule on the left, a new finding compared to the previous CT.. The ventricles and sulci are normal in appearance for the patient`s age. The visualized portions of the orbits are normal in appearance. The visualized paranasal sinuses and mastoids are clear. There is no change in the 1.4 centimeter lucent lesion in the right paramedian frontal skull which is probably a prominent arachnoid granulation. The osseous structures are otherwise normal in their appearance with no sign of abnormality in the skull base or calvarium. IMPRESSION: No sign of acute injury to the brain. Old lacunar infarct in the posterior limb of the internal capsule on the left, new compared to the previous study. Please note that all CT scans at this facility use dose modulation, iterative reconstruction, and/or weight-based dosing when appropriate to reduce radiation dose to as low as reasonably achievable. Dictated by Gil Mendoza MD @ Oct 09 2018 8:21PM Signed by Dr. Gil Mendoza @ Oct 09 2018 8:25PM
[2018-10-09] MEDS ORDERED: Sodium Chloride 0.9% 100 ML IV SCH (21:15)
[2018-10-09] MEDS ORDERED: Iopamidol 755 Mg/ML 100 ML Bottle IV SCH (21:15)
[2018-10-09 21:49] VITALS: BP 147/70
--- NOTE | 2018-10-09 22:48 | CRLCT ---
INDICATION: Weakness. TECHNIQUE: CTA of the head and neck was performed after the administration of Final Report : INDICATION: Weakness. TECHNIQUE: CTA of the head and neck was performed after the administration of intravenous contrast. Multiplanar Maximum Intensity Projections (MIPs) were created on a separate workstation at the request of the referring physician. COMPARISON: CT brain 10/09/2018. FINDINGS: The left vertebral artery is dominant. Mild mixed atherosclerotic plaque at the left carotid bifurcation minimally narrows the proximal left internal carotid artery. No significant narrowing of the common carotid, internal carotid, external carotid, or vertebral arteries. Minimal atherosclerotic plaque within the cavernous internal carotid arteries. No hemodynamically significant stenosis involving the vessels of the anterior posterior circulation. Large right posterior communicating artery. There is no aneurysm or vascular malformation. Deep cerebral veins and dural venous sinuses are unremarkable. Nonspecific 15 mm hypoattenuating lesion in the right thyroid lobe. IMPRESSION: 1. No significant stenosis or occlusion of the cervical internal carotid or intracranial arteries. 2. Nonspecific 15 mm hypoattenuating lesion in the right thyroid lobe. Thyroid ultrasound is offered for further assessment. Please note that all CT scans at this facility use dose modulation, iterative reconstruction, and/or weight-based dosing when appropriate to reduce radiation dose to as low as reasonably achievable. Dictated by Sly Delvalle MD @ Oct 10 2018 1:07PM Signed by: Sly Delvalle MD @10/10/2018 3:43:40 PM (Electronic Signature) intravenous contrast. Multiplanar Maximum Intensity Projections (MIPs) were created on a separate workstation at the request of the referring physician. COMPARISON: CT brain 10/09/2018. FINDINGS: The left vertebral artery is dominant. Mild mixed atherosclerotic plaque at the left carotid bifurcation minimally narrows the proximal left internal carotid artery. No significant narrowing of the common carotid, internal carotid, external carotid, or vertebral arteries. Minimal atherosclerotic plaque within the cavernous internal carotid arteries. No hemodynamically significant stenosis involving the vessels of the anterior posterior circulation. Large right posterior communicating artery. There is no aneurysm or vascular malformation. Deep cerebral veins and dural venous sinuses are unremarkable. Nonspecific 15 mm hypoattenuating lesion in the right thyroid lobe. IMPRESSION: 1. No significant stenosis or occlusion of the cervical internal carotid or intracranial arteries. 2. Nonspecific 15 mm hypoattenuating lesion in the right thyroid lobe. Thyroid ultrasound is offered for further assessment. Please note that all CT scans at this facility use dose modulation, iterative reconstruction, and/or weight-based dosing when appropriate to reduce radiation dose to as low as reasonably achievable. Dictated by Sly Delvalle MD @ Oct 10 2018 1:07PM Signed by Dr. Sly Delvalle @ Oct 10 2018 3:43PM [facility]
--- NOTE | 2018-10-09 22:52 | CRLCT ---
INDICATION: Weakness. TECHNIQUE:Final Report: INDICATION: Weakness. TECHNIQUE: CTA of the head and neck was performed after the administration of intravenous contrast. Multiplanar Maximum Intensity Projections (MIPs) were created on a separate workstation at the request of the referring physician. COMPARISON: CT brain 10/09/2018. FINDINGS: The left vertebral artery is dominant. Mild mixed atherosclerotic plaque at the left carotid bifurcation minimally narrows the proximal left internal carotid artery. No significant narrowing of the common carotid, internal carotid, external carotid, or vertebral arteries. Minimal atherosclerotic plaque within the cavernous internal carotid arteries. No hemodynamically significant stenosis involving the vessels of the anterior posterior circulation. Large right posterior communicating artery. There is no aneurysm or vascular malformation. Deep cerebral veins and dural venous sinuses are unremarkable. Nonspecific 15 mm hypoattenuating lesion in the right thyroid lobe. IMPRESSION: 1. No significant stenosis or occlusion of the cervical internal carotid or intracranial arteries. 2. Nonspecific 15 mm hypoattenuating lesion in the right thyroid lobe. Thyroid ultrasound is offered for further assessment. Please note that all CT scans at this facility use dose modulation, iterative reconstruction, and/or weight-based dosing when appropriate to reduce radiation dose to as low as reasonably achievable. Dictated by Sly Delvalle MD @ Oct 10 2018 1:07PM Signed by: Sly Delvalle MD @10/10/2018 3:43:40 PM (Electronic Signature) CTA of the head and neck was performed after the administration of intravenous contrast. Multiplanar Maximum Intensity Projections (MIPs) were created on a separate workstation at the request of the referring physician. COMPARISON: CT brain 10/09/2018. FINDINGS: The left vertebral artery is dominant. Mild mixed atherosclerotic plaque at the left carotid bifurcation minimally narrows the proximal left internal carotid artery. No significant narrowing of the common carotid, internal carotid, external carotid, or vertebral arteries. Minimal atherosclerotic plaque within the cavernous internal carotid arteries. No hemodynamically significant stenosis involving the vessels of the anterior posterior circulation. Large right posterior communicating artery. There is no aneurysm or vascular malformation. Deep cerebral veins and dural venous sinuses are unremarkable. Nonspecific 15 mm hypoattenuating lesion in the right thyroid lobe. IMPRESSION: 1. No significant stenosis or occlusion of the cervical internal carotid or intracranial arteries. 2. Nonspecific 15 mm hypoattenuating lesion in the right thyroid lobe. Thyroid ultrasound is offered for further assessment. Please note that all CT scans at this facility use dose modulation, iterative reconstruction, and/or weight-based dosing when appropriate to reduce radiation dose to as low as reasonably achievable. Dictated by Sly Delvalle MD @ Oct 10 2018 3:43PM Signed by Dr. Sly Delvalle @ Oct 10 2018 3:44PM [facility]
== END 2018-10-10 00:15 ==
LOC: JP.ED 19:17
DX: I63.9 Cerebral infarction, unspecified (principal); E66.9 Obesity, unspecified; F17.210 Nicotine dependence, cigarettes, uncomplicated; Z79.899 Other long term (current) drug therapy
CPT/HCPCS: 36415; 70450; 70496; 70498; 80053; 84484; 85025; 85610; 85730; 93005; 99285; J7030; Q9967

== ENCOUNTER 2020-05-10 15:41 | Emergency (ER) | payer MEDICAID, MEDICARE ==
[2020-05-10 16:07] VITALS: BP 186/87; PULSE 85
[2020-05-10] MEDS ORDERED: Diphtheria,Pertussis(Acell),Tetanus Vaccine 0.5 ML Syringe IM ONE (16:45)
[2020-05-10] MEDS ORDERED: Acetaminophen 500 MG Tab PO ONE (16:46)
[2020-05-10] MEDS ORDERED: Bacitracin Oint 1 GM U/D Packet TOP ONE (16:46)
[2020-05-10] MEDS ORDERED: Lidocaine 1% with EPINEPHrine 1:100,000 50 ML MDV SUBCUT STA (16:46)
--- NOTE | 2020-05-10 17:02 | EDM.PDOC ---
ED HPI GENERAL MEDICAL PROBLEM - General Chief Complaint: Head Injury Stated Complaint: FELL AT HOME, FOREHEAD BLEEDING Time Seen by Provider: 05/10/20 16:35 Source of Information: Reports: Patient, Old Records, RN History Limitations: Reports: No Limitations - History of Present Illness INITIAL COMMENTS - FREE TEXT/NARRATIVE: 59 yo male here after tripping at home and lacerating his forehead. No LOC, neck pain or nausea. Does have a mild SAPP. Last tetanus was in '13. Lives with his . Not on any anticoagulants. PHx of CVA so his balance if off a bit. Onset: Today, Sudden Onset Date: 05/10/20 Duration: Minutes: Location: Reports: Face Quality: Reports: Ache Severity: Mild Improves with: Reports: None Worsens with: Reports: None Context: Reports: Trauma Associated Symptoms: Reports: Headaches (mild). Denies: Nausea/Vomiting Treatments ELDER ASSISTANT: Reports: Other (see below) (none) - Related Data Allergies Allergy/AdvReac Type Severity Reaction Status Date / Time No Known Allergies Allergy Verified 05/10/20 16:08 Home Meds: Home Meds Cyclobenzaprine HCl [Flexeril] 10 mg PO Q8HR PRN 04/22/13 [History] Gabapentin [Neurontin] 600 mg PO TID 04/22/13 [History] Metoclopramide [Reglan] 10 mg PO Q8HR PRN 04/22/13 [History] Omeprazole 20 mg PO DAILY 04/22/13 [History] Simvastatin [Zocor] 40 mg PO DAILY 04/22/13 [History] allopurinoL [Zyloprim] 300 mg PO DAILY 04/22/13 [History] buPROPion HCL [Wellbutrin SR] 150 mg PO BID 04/22/13 [History] diphenhydrAMINE HCl [Diphenhydramine HCl] 50 mg PO BEDTIME PRN 04/22/13 [History] oxyCODONE HCl/Acetaminophen [Percocet 10-325 MG] 1 each PO Q6HR PRN 04/22/13 [History] traMADol HCl [Rybix ODT] 50 mg PO Q6H PRN 04/22/13 [History] Aspirin 1 tab PO DAILY 10/09/18 [History] Metoprolol Tartrate 50 mg PO BID 10/09/18 [History] Past Medical History HEENT History: Reports: Impaired Vision Cardiovascular History: Reports: High Cholesterol Respiratory History: Reports: Sleep Apnea Gastrointestinal History: Reports: Cholelithiasis, GERD, PUD Genitourinary History: Reports: Renal Calculus Musculoskeletal History: Reports: Other (See Below) Other Musculoskeletal History: s/p Laminectomy 05/13/17 Neurological History: Reports: CVA, Migraines, Other (See Below) Other Neuro History: cva 2018 Endocrine/Metabolic History: Reports: Obesity/BMI 30+ - Infectious Disease History Infectious Disease History: Reports: Chicken Pox - Past Surgical History HEENT Surgical History: Reports: None Cardiovascular Surgical History: Reports: None Respiratory Surgical History: Reports: None GI Surgical History: Reports: Appendectomy, Cholecystectomy, Colonoscopy, EGD Male Surgical History: Reports: None Endocrine Surgical History: Reports: None Neurological Surgical History: Reports: Lumbar Spine Musculoskeletal Surgical History: Reports: None Social & Family History - Family History Family Medical History: No Pertinent Family History - Tobacco Use Tobacco Use Status *Q: Current Every Day Tobacco User Years of Tobacco use: 40 Packs/Tins Daily: 0.5 - Caffeine Use Caffeine Use: Reports: Soda ED ROS GENERAL - Review of Systems Review Of Systems: See Below Constitutional: Reports: No Symptoms HEENT: Reports: No Symptoms Respiratory: Reports: No Symptoms Cardiovascular: Reports: No Symptoms Endocrine: Reports: No Symptoms GI/Abdominal: Reports: No Symptoms : Reports: No Symptoms Musculoskeletal: Reports: No Symptoms Skin: Reports: Wound (forehead laceration) Neurological: Reports: Headache (mild). Denies: Dizziness, Numbness, Syncope, Difficulty Walking, Weakness ED EXAM, HEAD INJURY - Physical Exam Exam: See Below Exam Limited By: No Limitations General Appearance: Alert, WD/WN, No Apparent Distress, Obese Head: Other ( forehead laceration) Nexus Criteria: No: Posterior, Midline Cervical Tenderness, Focal Neurological Deficit, Painful Distraction Injuries Eyes: Bilateral Eye: Normal Inspection, PERRL Ears: Normal External Exam, Normal Canal, Hearing Grossly Normal Nose: Normal Inspection, No Blood Throat/Mouth: Normal Inspection, Normal Lips, Normal Oropharynx, Normal Voice, No Airway Compromise Neck: Non-Tender, Full Range of Motion, Normal Inspection Respiratory: No Respiratory Distress, Lungs Clear, Normal Breath Sounds, No Accessory Muscle Use Cardiovascular: Regular Rate, Rhythm Extremities: Normal Inspection Neurologic: psychometrician II-XII nml As Tested, No Motor/Sensory Deficits, Alert, Normal Mood/Affect, Oriented x 3 - [place] Coma Score Best Eye Response (Willian): (4) Open Spontaneously Best Verbal Response ([place]): (5) Oriented Best Motor Response (Willian): (6) Obeys Commands Willian Total: 15 ED LACERATION/WOUND & APOORVA PROC - Laceration/Wound Repair Middle Forehead Lac/wound length in cm: 5.5 Appearance: Subcutaneous, Linear Distal NVT: Neuro & Vascular Intact Anesthetic Type: Local Local Anesthesia - Lidocaine (Xylocaine): 1% with EPI Local Anesthetic Volume: Other (10 ml) Skin Prep: Saline Exploration/Debridement/Repair: Wound Explored, Explored to Base Closed with: Sutures Suture Size: 5-0 # of Sutures: 7 Suture Type: Nylon, Interrupted, Simple, Mattress Drain Placement: No Sterile Dressing Applied: Nurse Tetanus Status Addressed: Yes Complications: No Course - Vital Signs Last Recorded V/S: Last Vital Signs Temp 36.7 C 05/10/20 16:16 Pulse 85 05/10/20 16:16 Resp 16 05/10/20 16:16 BP 186/87 H 05/10/20 16:16 Pulse Ox 94 L 05/10/20 16:16 - Orders/Labs/Meds Orders: Active Orders 24 hr Category Date Time Status Vaccines to be Administered [RC] PER UNIT ROUTINE Care 05/10/20 16:46 Ordered Acetaminophen [Tylenol Extra Strength] Med 05/10/20 16:46 Once 1,000 mg PO ONETIME ONE Bacitracin [Bacitracin Oint 1 GM] Med 05/10/20 16:46 Once 2 dose TOP ONETIME ONE Diphth,Pertuss(Acell),Tet Vac [Boostrix] Med 05/10/20 16:45 Once 0.5 ml IM .ONCE ONE Lidocaine 1% w/EPINEPHrine [Xylocaine 1% with Med 05/10/20 16:46 Stat EPINEPHrine 1:100,000] 10 ml SUBCUT NOW STA Departure - Departure Time of Disposition: 17:25 Disposition: Home, Self-Care 01 Condition: Good Clinical Impression: Laceration of forehead Qualifiers: Encounter type: initial encounter Qualified Code(s): S01.81XA - Laceration without foreign body of other part of head, initial encounter - Discharge Information *PRESCRIPTION DRUG MONITORING PROGRAM REVIEWED*: No *COPY OF PRESCRIPTION DRUG MONITORING REPORT IN PATIENT KENNETH: No Instructions: Sutured Wound Care, [id number] Referrals: Elijah Martinez MD [Primary Care Provider] - Additional Instructions: Clean wound twice daily with soap and water. Dry. Apply antibiotic ointment and a new dressing. Stitches out in 8 days. Acetaminophen for pain relief. Recheck for signs of infection. Sepsis Event Note (ED) - Evaluation Sepsis Screening Result: No Definite Risk - Focused Exam Vital Signs: Vital Signs Temp Pulse Resp BP Pulse Ox 05/10/20 16:16 36.7 C 85 16 186/87 H 94 L 05/10/20 16:06 36.7 C 85 16 186/87 H 94 L - My Orders Last 24 Hours: My Active Orders 05/10/20 16:45 Diphth,Pertuss(Acell),Tet Vac [Boostrix] 0.5 ml IM .ONCE ONE 05/10/20 16:46 Vaccines to be Administered [RC] PER UNIT ROUTINE Acetaminophen [Tylenol Extra Strength] 1,000 mg PO ONETIME ONE Bacitracin [Bacitracin Oint 1 GM] 2 dose TOP ONETIME ONE 05/10/20 16:46 Lidocaine 1% w/EPINEPHrine [Xylocaine 1% with EPINEPHrine 1:100,000] 10 ml SUBCUT NOW STA - Assessment/Plan Last 24 Hours: My Active Orders 05/10/20 16:45 Diphth,Pertuss(Acell),Tet Vac [Boostrix] 0.5 ml IM .ONCE ONE 05/10/20 16:46 Vaccines to be Administered [RC] PER UNIT ROUTINE Acetaminophen [Tylenol Extra Strength] 1,000 mg PO ONETIME ONE Bacitracin [Bacitracin Oint 1 GM] 2 dose TOP ONETIME ONE 05/10/20 16:46 Lidocaine 1% w/EPINEPHrine [Xylocaine 1% with EPINEPHrine 1:100,000] 10 ml SUBCUT NOW STA
== END 2020-05-10 17:35 | disposition home or self-care (01) ==
LOC: JP.ED 15:41
DX: S01.81XA Laceration without foreign body of other part of head, initial encounter (principal); F17.210 Nicotine dependence, cigarettes, uncomplicated; E78.00 Pure hypercholesterolemia, unspecified; K21.9 Gastro-esophageal reflux disease without esophagitis; Z86.73 Personal history of transient ischemic attack (TIA), and cerebral infarction without residual deficits; E66.9 Obesity, unspecified; Z68.39 Body mass index [BMI] 39.0-39.9, adult; Z79.899 Other long term (current) drug therapy; Z23 Encounter for immunization; W01.0XXA Fall on same level from slipping, tripping and stumbling without subsequent striking against object, initial encounter; Y92.009 Unspecified place in unspecified non-institutional (private) residence as the place of occurrence of the external cause
CPT/HCPCS: 12014; 90471; 90715; 99282; A9270

== ENCOUNTER 2022-03-28 16:00 | Emergency (ER) | payer MEDICARE ==
[2022-03-28] MEDS ORDERED: Sodium Chloride 0.9% 10 ML Syringe FLUSH PRN (16:19)
[2022-03-28] MEDS: Sodium Chloride 0.9% 10 ML Syringe FLUSH PRN (16:34)
[2022-03-28 16:59] LABS: ESTIMATED GFR 39 mL/min (>60); TROPONIN I HIGH SENSITIVITY 7.8 pg/mL (<=60.3)
[2022-03-28 17:08] VITALS: BP 113/65; PULSE 74
== END 2022-03-28 18:01 ==
LOC: JP.ED 16:00
DX: R29.810 Facial weakness (principal); R47.81 Slurred speech; R53.1 Weakness; E78.00 Pure hypercholesterolemia, unspecified; E66.9 Obesity, unspecified; K21.9 Gastro-esophageal reflux disease without esophagitis; F17.210 Nicotine dependence, cigarettes, uncomplicated; Z86.73 Personal history of transient ischemic attack (TIA), and cerebral infarction without residual deficits; Z68.26 Body mass index [BMI] 26.0-26.9, adult; Z79.82 Long term (current) use of aspirin; Z79.899 Other long term (current) drug therapy
CPT/HCPCS: 36415; 80053; 83605; 84484; 85025; 85610; 85730; 93005; 93010; 99284; 99285; J3490

== ENCOUNTER 2022-05-15 23:42 | Inpatient (IN) | payer MEDICARE ==
[2022-05-15] MEDS ORDERED: Sodium Chloride 0.9% 500 ML IV ONE (23:45)
[2022-05-15] MEDS ORDERED: Sodium Chloride 0.9% 10 ML Syringe FLUSH PRN (23:45)
[2022-05-16] MEDS ORDERED: 50% Dextrose in Water 50 ML Syringe ONE (00:06)
[2022-05-16] MEDS: 50% Dextrose in Water 50 ML Syringe IVPUSH ONE ×2 (00:09→00:10)
[2022-05-16] MEDS ORDERED: Iopamidol 755 Mg/ML 100 ML Bottle IV STA (00:14)
[2022-05-16] MEDS ORDERED: Sodium Chloride 0.9% 100 ML IV STA (00:14)
[2022-05-16 00:18] LABS: ESTIMATED GFR 15 mL/min (>60); TROPONIN I HIGH SENSITIVITY 10.4 pg/mL (<=60.3)
[2022-05-16] MEDS ORDERED: Lactated Ringers 1,000 ML IV SCH (00:30)
[2022-05-16] MEDS ORDERED: Acetaminophen 325 MG Tab PO PRN (02:36)
[2022-05-16] MEDS ORDERED: Cyclobenzaprine 10 MG Tab PO PRN (02:36)
[2022-05-16] MEDS ORDERED: LORazepam 2 MG/ML SDV IV PRN (02:36)
[2022-05-16] MEDS ORDERED: Docusate Sodium 100 MG Cap PO PRN (02:36)
[2022-05-16] MEDS ORDERED: Sodium Chloride 0.9% 500 ML IV SCH (02:36)
[2022-05-16] MEDS ORDERED: Ondansetron 4 MG Tab.DIS PO PRN (02:36)
[2022-05-16] MEDS ORDERED: Albuterol 0.083% 2.5 MG/3 ML Neb Soln NEB PRN (02:36)
[2022-05-16] MEDS ORDERED: Morphine 2 MG/ML SYRINGE IVPUSH PRN (02:36)
[2022-05-16] MEDS ORDERED: Bisacodyl 5 MG Tab PO PRN (02:36)
[2022-05-16] MEDS ORDERED: Metoclopramide 10 MG Tab PO PRN (02:36)
[2022-05-16] MEDS ORDERED: diphenhydrAMINE 25 MG Cap PO PRN (02:52)
[2022-05-16] MEDS ORDERED: Pantoprazole 40 MG Vial IVPUSH ONE (03:00)
[2022-05-16] MEDS ORDERED: Furosemide 40 MG Tab PO SCH (08:00)
[2022-05-16] MEDS ORDERED: Non-Formulary Medication 1 Each (Gabapentin [Neurontin] 600 MG Tablet) PO SCH (09:00)
[2022-05-16] MEDS ORDERED: Allopurinol 100 MG Tab PO SCH (09:00)
[2022-05-16] MEDS ORDERED: Non-Formulary Medication 1 Each (Allopurinol [Zyloprim] 300 MG Tablet) PO SCH (09:00)
[2022-05-16] MEDS: Magnesium Oxide 400 MG Tab PO SCH (09:02)
[2022-05-16] MEDS: Metoprolol Tartrate 50 MG Tab PO SCH ×2 (09:02→21:00)
[2022-05-16] MEDS: Ferrous Sulfate 325 MG Tab PO SCH ×2 (09:02→17:44)
[2022-05-16] MEDS: buPROPion 150 MG Tab.SR PO SCH ×2 (09:03→21:00)
[2022-05-16] MEDS: Clopidogrel 75 MG Tab PO SCH (09:03)
[2022-05-16] MEDS: Potassium Chloride 20 MEQ Tab.ER PO SCH ×2 (09:04→21:00)
[2022-05-16] MEDS: Aspirin 325 MG Tab.EC PO SCH (09:04)
[2022-05-16] MEDS: Nicotine 14 MG/24 Hr Patch TRDERM SCH (09:04)
[2022-05-16] MEDS: Cyanocobalamin (Vitamin B12) 1,000 MCG Tab PO SCH (09:04)
[2022-05-16] MEDS ORDERED: Non-Formulary Medication 1 Each (Gabapentin [Neurontin] 600 MG) PO SCH (09:09)
[2022-05-16] MEDS: Sodium Chloride 0.9% 1,000 ML IV SCH (09:13)
[2022-05-16] MEDS: oxyCODONE 5 MG Tab PO PRN ×2 (09:18→20:59)
[2022-05-16] MEDS: Gabapentin 300 MG Cap PO SCH (11:37)
[2022-05-16] MEDS: atorvaSTATin 20 MG Tab PO SCH (21:00)
[2022-05-16] MEDS ORDERED: Pantoprazole 40 MG Vial IVPUSH SCH (21:00)
[2022-05-16] MEDS: Pantoprazole 40 MG Tab.CR PO SCH (21:00)
[2022-05-16] MEDS: Latanoprost 0.005% Ophth Soln 2.5 ML Bottle EYEBOTH SCH (21:00)
[2022-05-17] MEDS: Sodium Chloride 0.9% 1,000 ML IV SCH (03:00)
[2022-05-17] MEDS: oxyCODONE 5 MG Tab PO PRN (06:49)
[2022-05-17] MEDS: Ferrous Sulfate 325 MG Tab PO SCH ×2 (07:25→17:34)
[2022-05-17] MEDS: buPROPion 150 MG Tab.SR PO SCH ×2 (08:20→20:23)
[2022-05-17] MEDS: Aspirin 325 MG Tab.EC PO SCH (08:20)
[2022-05-17] MEDS: Clopidogrel 75 MG Tab PO SCH (08:20)
[2022-05-17] MEDS: Cyanocobalamin (Vitamin B12) 1,000 MCG Tab PO SCH (08:20)
[2022-05-17] MEDS: Potassium Chloride 20 MEQ Tab.ER PO SCH ×2 (08:21→20:23)
[2022-05-17] MEDS: Gabapentin 300 MG Cap PO SCH (08:21)
[2022-05-17] MEDS: Magnesium Oxide 400 MG Tab PO SCH (08:21)
[2022-05-17] MEDS: Nicotine 14 MG/24 Hr Patch TRDERM SCH (08:21)
[2022-05-17] MEDS: Metoprolol Tartrate 50 MG Tab PO SCH ×2 (08:23→20:24)
[2022-05-17] MEDS ORDERED: LORazepam 1 MG Tab PO ONE (12:56)
[2022-05-17] MEDS: Latanoprost 0.005% Ophth Soln 2.5 ML Bottle EYEBOTH SCH (20:22)
[2022-05-17] MEDS: atorvaSTATin 20 MG Tab PO SCH (20:23)
[2022-05-17] MEDS: Pantoprazole 40 MG Tab.CR PO SCH (20:24)
[2022-05-18] MEDS: Potassium Chloride 20 MEQ Tab.ER PO SCH ×2 (10:13→21:17)
[2022-05-18] MEDS: Nicotine 14 MG/24 Hr Patch TRDERM SCH (10:14)
[2022-05-18] MEDS: Metoprolol Tartrate 50 MG Tab PO SCH ×2 (10:15→21:11)
[2022-05-18] MEDS: Aspirin 325 MG Tab.EC PO SCH (10:15)
[2022-05-18] MEDS: Ferrous Sulfate 325 MG Tab PO SCH (10:16)
[2022-05-18] MEDS: Magnesium Oxide 400 MG Tab PO SCH (10:16)
[2022-05-18] MEDS: Clopidogrel 75 MG Tab PO SCH (10:16)
[2022-05-18] MEDS: Cyanocobalamin (Vitamin B12) 1,000 MCG Tab PO SCH (10:16)
[2022-05-18] MEDS: Gabapentin 300 MG Cap PO SCH ×3 (10:16→21:11)
[2022-05-18] MEDS: buPROPion 150 MG Tab.SR PO SCH ×2 (10:16→21:12)
[2022-05-18] MEDS ORDERED: Loperamide 2 MG Cap PO PRN (13:09)
[2022-05-18] MEDS ORDERED: Sodium Chloride 0.9% 75 ML IV SCH (17:00)
[2022-05-18] MEDS ORDERED: Iopamidol 612 MG/ML 100 ML Bottle IV SCH (17:00)
[2022-05-18] MEDS ORDERED: methylPREDNISolone Sodium Succinate 125 MG/2 ML SDV IVPUSH ONE (19:16)
[2022-05-18] MEDS: Sodium Chloride 0.9% 1,000 ML IV SCH (19:51)
[2022-05-18] MEDS: metroNIDAZOLE/Normal Saline 500 MG in Premix Bag 1 BAG IV SCH (20:04)
[2022-05-18] MEDS ORDERED: Ciprofloxacin in D5W 400 MG in Premix Bag 1 BAG IV SCH ×2 (21:00)
[2022-05-18] MEDS: Pantoprazole 40 MG Tab.CR PO SCH (21:12)
[2022-05-18] MEDS: Latanoprost 0.005% Ophth Soln 2.5 ML Bottle EYEBOTH SCH (21:16)
[2022-05-18] MEDS: atorvaSTATin 20 MG Tab PO SCH (21:17)
[2022-05-19] MEDS: metroNIDAZOLE/Normal Saline 500 MG in Premix Bag 1 BAG IV SCH (03:55)
[2022-05-19] MEDS ORDERED: methylPREDNISolone Sodium Succinate 125 MG/2 ML SDV IVPUSH SCH (04:00)
[2022-05-19] MEDS: Sodium Chloride 0.9% 1,000 ML IV SCH (07:17)
[2022-05-19] MEDS: Potassium Chloride 20 MEQ Tab.ER PO SCH (08:20)
[2022-05-19] MEDS: Gabapentin 300 MG Cap PO SCH (08:20)
[2022-05-19] MEDS: Cyanocobalamin (Vitamin B12) 1,000 MCG Tab PO SCH (08:20)
[2022-05-19] MEDS: buPROPion 150 MG Tab.SR PO SCH (08:21)
[2022-05-19] MEDS: Nicotine 14 MG/24 Hr Patch TRDERM SCH (08:21)
[2022-05-19] MEDS: Clopidogrel 75 MG Tab PO SCH (08:21)
[2022-05-19] MEDS: Aspirin 325 MG Tab.EC PO SCH (08:22)
[2022-05-19] MEDS: Metoprolol Tartrate 50 MG Tab PO SCH (08:22)
[2022-05-19] MEDS ORDERED: Ciprofloxacin in D5W 400 MG in Premix Bag 1 BAG IV SCH ×2 (09:00)
[2022-05-19] MEDS ORDERED: Mineral Oil 133 ML BOTTLE RECTAL ONE (09:30)
[2022-05-19 10:16] VITALS: BP 161/77; PULSE 82
[2022-05-19] MEDS ORDERED: metroNIDAZOLE/Normal Saline 500 MG in Premix Bag 1 BAG IV SCH (12:00)
== END 2022-05-19 13:30 | disposition home health service (06) | DRG 683 ==
LOC: JP.ED 23:42 → UNDOADMIN 05-16 01:32 → JP.MS 05-16 01:32 → UNDOADMIN 05-16 02:03
PROVIDERS: ADMIT Internal Medicine; ATTEND Internal Medicine
DX: I63.9 Cerebral infarction, unspecified (principal); N17.9 Acute kidney failure, unspecified; K56.600 Partial intestinal obstruction, unspecified as to cause; K56.7 Ileus, unspecified; E86.0 Dehydration; F17.210 Nicotine dependence, cigarettes, uncomplicated; G47.30 Sleep apnea, unspecified; G89.29 Other chronic pain; R29.810 Facial weakness; R53.1 Weakness; R47.81 Slurred speech; Z20.822 Contact with and (suspected) exposure to COVID-19; K52.89 Other specified noninfective gastroenteritis and colitis; T50.1X5A Adverse effect of loop [high-ceiling] diuretics, initial encounter; K21.9 Gastro-esophageal reflux disease without esophagitis; E78.5 Hyperlipidemia, unspecified; M54.59 Other low back pain; M10.9 Gout, unspecified; E11.9 Type 2 diabetes mellitus without complications; R91.1 Solitary pulmonary nodule; H54.7 Unspecified visual loss; E78.00 Pure hypercholesterolemia, unspecified; E66.9 Obesity, unspecified; G43.909 Migraine, unspecified, not intractable, without status migrainosus; I35.1 Nonrheumatic aortic (valve) insufficiency; Z79.82 Long term (current) use of aspirin; Z79.899 Other long term (current) drug therapy; Z86.73 Personal history of transient ischemic attack (TIA), and cerebral infarction without residual deficits; Z90.49 Acquired absence of other specified parts of digestive tract; Z87.440 Personal history of urinary (tract) infections; Z98.1 Arthrodesis status; Z79.02 Long term (current) use of antithrombotics/antiplatelets; Z68.31 Body mass index [BMI] 31.0-31.9, adult
CPT/HCPCS: 36415 ×2; 70450; 70496; 70498; 80053; 80307; 82947; 84484; 85025; 85610; 85730; 93005; J3490 ×2; J7040; J7120; Q9967; U0002; 70551; 70551-26; 74177; 76770; 80048; 83735; 85027; 87493; 92507-GN; 92522-GN; 93306; 93880; 93880-26; 93971-RT; 96361; 96374; 97110-GP; 97116-GP; 97163-GP; 97166-GO; 97530-GP; 97535-GO; 99285-25; A9270-GY; C9113; J0744; J2930; J7030; Q0162

== ENCOUNTER 2022-08-17 09:31 | Inpatient (IN) | payer MEDICARE, MEDICAID ==
[2022-08-17] MEDS ORDERED: HYDROmorphone 0.5 MG/0.5 ML Syringe IM ONE (10:01)
[2022-08-17] MEDS ORDERED: HYDROmorphone 0.5 MG/0.5 ML Syringe IVPUSH ONE ×2 (10:05→20:19)
[2022-08-17] MEDS ORDERED: Potassium Chloride 20 MEQ Tab.ER PO ONE ×4 (10:28→22:00)
[2022-08-17] MEDS ORDERED: Sodium Chloride 0.9% 500 ML IV ONE (10:35)
[2022-08-17 10:46] LABS: CORONAVIRUS COVID-19 NAA NEGATIVE (NEGATIVE)
[2022-08-17] MEDS ORDERED: Potassium Chloride 10 MEQ in Premix Bag 1 BAG IV SCH (11:00)
[2022-08-17] MEDS ORDERED: DIPHENHYDRAMINE HCL 50 MG PO PRN (12:18)
[2022-08-17] MEDS ORDERED: Sodium Chloride 0.9% 10 ML Syringe FLUSH PRN (12:18)
[2022-08-17] MEDS ORDERED: Cyclobenzaprine 10 MG Tab PO PRN (12:18)
[2022-08-17] MEDS ORDERED: Acetaminophen 325 MG Tab PO PRN (12:18)
[2022-08-17] MEDS ORDERED: Ondansetron 4 MG/2 ML SDV IV PRN (12:18)
[2022-08-17] MEDS ORDERED: TRAMADOL HCL 50 MG PO PRN (12:18)
[2022-08-17] MEDS: Potassium Chloride 10 MEQ in Premix Bag 1 BAG IV SCH ×4 (12:38→16:52)
[2022-08-17] MEDS ORDERED: traMADol 50 MG Tab PO PRN (12:55)
[2022-08-17] MEDS: Enoxaparin 40 MG/0.4 ML Syringe SUBCUT SCH (13:37)
[2022-08-17] MEDS: Ampicillin/Sulbactam Na 1.5 GM in Sodium Chloride 0.9% 50 ML IV SCH ×2 (13:38→17:56)
[2022-08-17] MEDS: Gabapentin 300 MG Cap PO SCH ×2 (13:38→22:13)
[2022-08-17] MEDS ORDERED: Non-Formulary Medication 1 Each (Gabapentin [Neurontin] 600 MG Tablet) PO SCH (14:00)
[2022-08-17] MEDS: Potassium Chloride 20 MEQ Tab.ER PO SCH (16:52)
[2022-08-17] MEDS: Potassium Chloride 20 MEQ in Premix Bag 1 BAG IV SCH ×2 (18:34→20:51)
[2022-08-17] MEDS ORDERED: diphenhydrAMINE 25 MG Cap PO PRN (20:00)
[2022-08-17] MEDS: Sodium Chloride 0.9% 1,000 ML IV SCH (20:44)
[2022-08-17] MEDS ORDERED: Non-Formulary Medication 1 Each (Atorvastatin [Lipitor] 80 MG Tablet) PO SCH (21:00)
[2022-08-17] MEDS ORDERED: BUPROPION HCL 150 MG PO SCH (21:00)
[2022-08-17] MEDS ORDERED: Metoprolol Tartrate 25 MG Tab PO SCH (21:00)
[2022-08-17] MEDS ORDERED: POTASSIUM CHLORIDE 20 MEQ PO SCH (21:00)
[2022-08-17] MEDS: buPROPion 150 MG Tab.SR PO SCH (22:14)
[2022-08-17] MEDS: atorvaSTATin 20 MG Tab PO SCH (22:14)
[2022-08-17] MEDS: Metoprolol Tartrate 50 MG Tab PO SCH (22:15)
[2022-08-17] MEDS: Latanoprost 0.005% Ophth Soln 2.5 ML Bottle EYEBOTH SCH (22:16)
[2022-08-18] MEDS: Ampicillin/Sulbactam Na 1.5 GM in Sodium Chloride 0.9% 50 ML IV SCH ×4 (01:17→17:56)
[2022-08-18] MEDS: Sodium Chloride 0.9% 1,000 ML IV SCH (05:13)
[2022-08-18] MEDS: Pantoprazole 40 MG Tab.CR PO SCH (07:35)
[2022-08-18] MEDS ORDERED: Potassium Chloride 20 MEQ Tab.ER PO ONE ×2 (08:00→12:00)
[2022-08-18] MEDS: Potassium Chloride 20 MEQ Tab.ER PO SCH ×2 (08:45→16:49)
[2022-08-18] MEDS ORDERED: Non-Formulary Medication 1 Each (Allopurinol [Zyloprim] 300 MG Tablet) PO SCH (09:00)
[2022-08-18] MEDS ORDERED: Non-Formulary Medication 1 Each (Omeprazole [Omeprazole] 20 MG Cap.Sr) PO SCH (09:00)
[2022-08-18] MEDS: Acetaminophen/oxyCODONE 325-10 MG Tab PO PRN ×2 (09:12→19:13)
[2022-08-18] MEDS: Gabapentin 300 MG Cap PO SCH ×3 (09:22→20:09)
[2022-08-18] MEDS: Clopidogrel 75 MG Tab PO SCH (09:22)
[2022-08-18] MEDS: Tamsulosin 0.4 MG Cap.ER PO SCH (09:22)
[2022-08-18] MEDS: Aspirin 81 MG Tab.EC PO SCH (09:23)
[2022-08-18] MEDS: buPROPion 150 MG Tab.SR PO SCH ×2 (09:23→20:09)
[2022-08-18] MEDS: Allopurinol 100 MG Tab PO SCH (09:24)
[2022-08-18] MEDS: Metoprolol Tartrate 50 MG Tab PO SCH ×2 (09:24→20:09)
[2022-08-18] MEDS: Potassium Chloride 10 MEQ in Premix Bag 1 BAG IV SCH ×8 (10:30→23:04)
[2022-08-18] MEDS: Enoxaparin 40 MG/0.4 ML Syringe SUBCUT SCH (14:00)
[2022-08-18] MEDS: atorvaSTATin 20 MG Tab PO SCH (20:08)
[2022-08-18] MEDS: Latanoprost 0.005% Ophth Soln 2.5 ML Bottle EYEBOTH SCH (20:11)
[2022-08-19] MEDS: Ampicillin/Sulbactam Na 1.5 GM in Sodium Chloride 0.9% 50 ML IV SCH ×3 (00:23→12:37)
[2022-08-19] MEDS: Pantoprazole 40 MG Tab.CR PO SCH (07:17)
[2022-08-19] MEDS: Potassium Chloride 20 MEQ Tab.ER PO SCH (07:18)
[2022-08-19] MEDS: Gabapentin 300 MG Cap PO SCH ×3 (09:21→20:09)
[2022-08-19] MEDS: Tamsulosin 0.4 MG Cap.ER PO SCH (09:22)
[2022-08-19] MEDS: Allopurinol 100 MG Tab PO SCH (09:22)
[2022-08-19] MEDS: Metoprolol Tartrate 50 MG Tab PO SCH ×2 (09:22→20:09)
[2022-08-19] MEDS: buPROPion 150 MG Tab.SR PO SCH ×2 (09:23→20:09)
[2022-08-19] MEDS: Clopidogrel 75 MG Tab PO SCH (09:23)
[2022-08-19] MEDS: Aspirin 81 MG Tab.EC PO SCH (09:24)
[2022-08-19] MEDS: Potassium Chloride 10 MEQ in Premix Bag 1 BAG IV SCH ×4 (10:18→14:15)
[2022-08-19] MEDS ORDERED: Potassium Chloride 20 MEQ Tab.ER PO ONE (12:00)
[2022-08-19] MEDS: Acetaminophen/oxyCODONE 325-10 MG Tab PO PRN ×2 (12:14→22:36)
[2022-08-19] MEDS: Enoxaparin 40 MG/0.4 ML Syringe SUBCUT SCH (13:12)
[2022-08-19] MEDS: Latanoprost 0.005% Ophth Soln 2.5 ML Bottle EYEBOTH SCH (20:09)
[2022-08-19] MEDS: Amoxicillin/Clavulanate K 875-125 MG Tab PO SCH (20:10)
[2022-08-19] MEDS: atorvaSTATin 20 MG Tab PO SCH (20:10)
[2022-08-20 07:26] VITALS: BP 161/82; PULSE 76
[2022-08-20] MEDS: Pantoprazole 40 MG Tab.CR PO SCH (07:57)
[2022-08-20] MEDS: Amoxicillin/Clavulanate K 875-125 MG Tab PO SCH (08:01)
[2022-08-20] MEDS: Metoprolol Tartrate 50 MG Tab PO SCH (08:01)
[2022-08-20] MEDS: Tamsulosin 0.4 MG Cap.ER PO SCH (08:01)
[2022-08-20] MEDS: Allopurinol 100 MG Tab PO SCH (08:02)
[2022-08-20] MEDS: Gabapentin 300 MG Cap PO SCH (08:02)
[2022-08-20] MEDS: Aspirin 81 MG Tab.EC PO SCH (08:02)
[2022-08-20] MEDS: Clopidogrel 75 MG Tab PO SCH (08:02)
[2022-08-20] MEDS: buPROPion 150 MG Tab.SR PO SCH (08:02)
[2022-08-20] MEDS ORDERED: Potassium Chloride 10 MEQ in Premix Bag 1 BAG IV SCH (09:00)
== END 2022-08-20 10:29 | disposition home health service (06) | DRG 392 ==
LOC: JP.ED 09:31 → JP.MS 11:36
PROVIDERS: ADMIT Hospitalist; ATTEND Internal Medicine
DX: R53.1 Weakness (principal); A09 Infectious gastroenteritis and colitis, unspecified; N13.8 Other obstructive and reflux uropathy; I69.351 Hemiplegia and hemiparesis following cerebral infarction affecting right dominant side; D64.9 Anemia, unspecified; N17.9 Acute kidney failure, unspecified; S70.01XA Contusion of right hip, initial encounter; E87.6 Hypokalemia; E86.0 Dehydration; Z96.0 Presence of urogenital implants; N40.1 Benign prostatic hyperplasia with lower urinary tract symptoms; Z20.822 Contact with and (suspected) exposure to COVID-19; H54.7 Unspecified visual loss; E78.00 Pure hypercholesterolemia, unspecified; K21.9 Gastro-esophageal reflux disease without esophagitis; Z79.02 Long term (current) use of antithrombotics/antiplatelets; M54.9 Dorsalgia, unspecified; G89.29 Other chronic pain; M10.9 Gout, unspecified; E66.9 Obesity, unspecified; S40.011A Contusion of right shoulder, initial encounter; S30.0XXA Contusion of lower back and pelvis, initial encounter; F17.200 Nicotine dependence, unspecified, uncomplicated; T50.1X5A Adverse effect of loop [high-ceiling] diuretics, initial encounter; M54.41 Lumbago with sciatica, right side; Z68.28 Body mass index [BMI] 28.0-28.9, adult; Z79.82 Long term (current) use of aspirin; Z79.899 Other long term (current) drug therapy; W19.XXXA Unspecified fall, initial encounter
CPT/HCPCS: 0241U; 36415; 71045; 73030; 73502; 73700; 80048; 81001; 83735; 84100; 84132; 84145; 85025; 86140; 87046; 87086; 87088; 87186; 87899; 89055; 93005; 96365; 96375; 97110; 97162; 97530; 99285; A9270-GY; J0295; J1170; J1650; J2405; J3480; J3490; J7030; J7040

== ENCOUNTER 2023-12-01 17:58 | Inpatient (IN) | payer MEDICARE ==
[2023-12-01 18:15] LABS: BASOPHILS PERCENT AUTO 0.2 % (0.1-1.3); EOSINOPHILS ABSOLUTE AUTO 0.08 K/uL (0.00-0.40); HEMATOCRIT 35.2 % (38.4-49.7); HEMOGLOBIN 11.4 g/dL (12.9-16.9); IMMATURE GRAN PERCENT AUTO 0.2 % (0.0-0.7); LYMPHOCYTES PERCENT AUTO 16.6 % (11.4-47.7); MEAN CORPUSCULAR HEMOGLOBIN 27.7 pg (31.6-35.5); MEAN CORPUSCULAR HGB CONC 32.4 g/dL (31.6-35.5); MEAN CORPUSCULAR VOLUME 85.6 fL (81.4-99.0); MONOCYTES ABSOLUTE AUTO 0.64 K/uL (0.20-0.90); MONOCYTES PERCENT AUTO 7.6 % (3.3-12.6); NEUTROPHILS ABSOLUTE AUTO 6.26 K/uL (1.0-7.6); NEUTROPHILS PERCENT AUTO 74.4 % (40.0-78.1); PLATELET COUNT,PLT 162 K/uL (130-375); RED BLOOD CELL COUNT 4.11 M/uL (4.14-5.76); WHITE BLOOD CELL COUNT,WBC 8.4 K/uL (3.2-11.0)
[2023-12-01 18:16] LABS: BASOPHILS ABSOLUTE AUTO 0.02 K/uL (0.00-0.10); IMMATURE GRAN ABSOLUTE AUTO 0.02 K/uL (0.00-0.23)
[2023-12-01] MEDS: Sodium Chloride 0.9% 1,000 ML IV ONE ×2 (18:28→19:33)
[2023-12-01] MEDS: Sodium Chloride 0.9% 10 ML Syringe FLUSH PRN (18:28)
[2023-12-01 18:38] LABS: INR 1.2; PROTHROMBIN TIME 11.6 sec (9.2-10.6)
[2023-12-01 18:40] LABS: A/G RATIO 0.9 (1.2-2.2); ALANINE AMINOTRANSFERASE,ALT 22 U/L (12-78); ALBUMIN 3.7 g/dL (3.4-5.0); ALKALINE PHOSPHATASE 180 U/L (46-116); ASPARTATE AMNIOTRANSFERASE,AST 14 U/L (15-37); BILIRUBIN TOTAL 0.4 mg/dL (0.2-1.0); BLOOD UREA NITROGEN,BUN 20 mg/dL (7-18); CALCIUM 9.4 mg/dL (8.5-10.1); CARBON DIOXIDE,CO2 28 mmol/L (21-32); CHLORIDE,CL 97 mmol/L (100-108); CREATININE 2.4 mg/dL (0.8-1.3); EST CRCL DRUG DOSING (CG) 30.69 mL/min; ESTIMATED GFR 29 mL/min (>60); GLUCOSE RANDOM 100 mg/dL (74-106); POTASSIUM,K 4.2 mmol/L (3.6-5.2); PROTEIN TOTAL,TP 7.7 g/dL (6.4-8.2); SODIUM,NA 133 mmol/L (140-148)
[2023-12-01 18:54] LABS: ANION GAP 12.2 mmol/L (5.0-14.0)
[2023-12-01 19:08] LABS: PTT,PARTIAL THROMBOPLSTIN TIME 25.2 sec (21.8-27.3)
[2023-12-01 19:19] LABS: APPEARANCE,URINE CLEAR (CLEAR); BILIRUBIN,URINE NEGATIVE (NEGATIVE); COLOR,URINE YELLOW (YELLOW); GLUCOSE,URINE NEGATIVE (NEGATIVE); KETONES,URINE NEGATIVE (NEGATIVE); LEUKOCYTE ESTERASE,URINE NEGATIVE (NEGATIVE); NITRITE,URINE NEGATIVE (NEGATIVE); OCCULT BLOOD,URINE TRACE-INTACT (NEGATIVE); PH,URINE 5.5 (5.0-8.0); PROTEIN,URINE NEGATIVE (NEGATIVE); UROBILINOGEN,URINE 0.2 EU/dL (0.2-1.0)
[2023-12-01 19:21] LABS: AMORPHOUS SEDIMENT,URINE NOT SEEN; BACTERIA,URINE RARE; EPITHELIAL CELLS,URINE RARE; MUCUS,URINE RARE; RBC,URINE 0-5 (0-5); WBC,URINE NOT SEEN (0-5)
[2023-12-01] MEDS ORDERED: Acetaminophen/HYDROcodone 325-5 MG Tab PO PRN (21:42)
[2023-12-01] MEDS ORDERED: Albuterol/Ipratropium 3.0-0.5 MG/3 ML Neb Soln NEB PRN (21:42)
[2023-12-01] MEDS ORDERED: Docusate Sodium 100 MG Cap PO PRN (21:42)
[2023-12-01] MEDS ORDERED: Ondansetron 4 MG Tab.DIS PO PRN (21:42)
[2023-12-01] MEDS ORDERED: Promethazine 25 MG Tab PO PRN (21:42)
[2023-12-01] MEDS ORDERED: Morphine 2 MG/ML SYRINGE IVPUSH PRN (21:42)
[2023-12-01] MEDS ORDERED: Melatonin 3 MG Tab PO PRN (21:42)
[2023-12-01] MEDS ORDERED: Acetaminophen 325 MG Tab PO PRN (21:42)
[2023-12-01] MEDS ORDERED: Cyclobenzaprine 10 MG Tab PO PRN (22:02)
[2023-12-01] MEDS: Sodium Chloride 0.9% 1,000 ML IV SCH (22:30)
[2023-12-01] MEDS: buPROPion 150 MG Tab.SR PO SCH (23:26)
[2023-12-02] MEDS: Metoprolol Tartrate 50 MG Tab PO ONE (00:01)
[2023-12-02] MEDS: Acetaminophen/oxyCODONE 325-5 MG Tab PO PRN (03:32)
[2023-12-02 05:13] LABS: BASOPHILS ABSOLUTE AUTO 0.04 K/uL (0.00-0.10); BASOPHILS PERCENT AUTO 0.6 % (0.1-1.3); EOSINOPHILS ABSOLUTE AUTO 0.08 K/uL (0.00-0.40); EOSINOPHILS PERCENT AUTO 1.2 % (0.0-5.4); HEMATOCRIT 31.2 % (38.4-49.7); IMMATURE GRAN PERCENT AUTO 0.3 % (0.0-0.7); LYMPHOCYTES ABSOLUTE AUTO 1.95 K/uL (0.8-3.3); LYMPHOCYTES PERCENT AUTO 28.6 % (11.4-47.7); MEAN CORPUSCULAR HEMOGLOBIN 27.7 pg (31.6-35.5); MEAN CORPUSCULAR HGB CONC 32.1 g/dL (31.6-35.5); MEAN CORPUSCULAR VOLUME 86.4 fL (81.4-99.0); MONOCYTES ABSOLUTE AUTO 0.45 K/uL (0.20-0.90); MONOCYTES PERCENT AUTO 6.6 % (3.3-12.6); NEUTROPHILS ABSOLUTE AUTO 4.27 K/uL (1.0-7.6); NEUTROPHILS PERCENT AUTO 62.7 % (40.0-78.1); PLATELET COUNT,PLT 142 K/uL (130-375); RED BLOOD CELL COUNT 3.61 M/uL (4.14-5.76); WHITE BLOOD CELL COUNT,WBC 6.8 K/uL (3.2-11.0)
[2023-12-02 05:19] LABS: IMMATURE GRAN ABSOLUTE AUTO 0.02 K/uL (0.00-0.23)
[2023-12-02 05:28] LABS: A/G RATIO 0.9 (1.2-2.2); ALANINE AMINOTRANSFERASE,ALT 17 U/L (12-78); ALKALINE PHOSPHATASE 150 U/L (46-116); ASPARTATE AMNIOTRANSFERASE,AST 12 U/L (15-37); BILIRUBIN TOTAL 0.4 mg/dL (0.2-1.0); BLOOD UREA NITROGEN,BUN 17 mg/dL (7-18); CALCIUM 8.4 mg/dL (8.5-10.1); CARBON DIOXIDE,CO2 29 mmol/L (21-32); CHLORIDE,CL 101 mmol/L (100-108); CREATININE 1.9 mg/dL (0.8-1.3); EST CRCL DRUG DOSING (CG) 38.76 mL/min; ESTIMATED GFR 39 mL/min (>60); GLUCOSE RANDOM 86 mg/dL (74-106); POTASSIUM,K 3.8 mmol/L (3.6-5.2); PROTEIN TOTAL,TP 6.4 g/dL (6.4-8.2); SODIUM,NA 136 mmol/L (140-148)
[2023-12-02 05:32] LABS: ANION GAP 9.8 mmol/L (5.0-14.0)
[2023-12-02] MEDS: Bumetanide 1 MG Tab PO SCH (08:37)
[2023-12-02] MEDS: Clopidogrel 75 MG Tab PO SCH (08:37)
[2023-12-02] MEDS: Metoprolol Tartrate 50 MG Tab PO SCH (08:38)
[2023-12-02] MEDS: Allopurinol 100 MG Tab PO SCH (08:38)
[2023-12-02] MEDS: Aspirin 81 MG Tab.Chew PO SCH (20:45)
[2023-12-02] MEDS: Tamsulosin 0.4 MG Cap.ER PO SCH (20:45)
[2023-12-02] MEDS: atorvaSTATin 20 MG Tab PO SCH (20:46)
[2023-12-02] MEDS: Pantoprazole 40 MG Tab.CR PO SCH (20:49)
[2023-12-03 04:58] VITALS: BP 152/61
[2023-12-03 10:01] LABS: CALCIUM 9.1 mg/dL (8.5-10.1); CREATININE 1.4 mg/dL (0.8-1.3); EST CRCL DRUG DOSING (CG) 52.6 mL/min; POTASSIUM,K 3.9 mmol/L (3.6-5.2)
[2023-12-03 10:02] LABS: ANION GAP 10.9 mmol/L (5.0-14.0)
[2023-12-03 11:13] VITALS: PULSE 58
[2023-12-03] MEDS ORDERED: Gabapentin 300 MG Cap PO SCH (14:00)
== END 2023-12-03 13:55 | disposition home or self-care (01) | DRG 684 ==
LOC: JP.ED 17:58 → JP.MS 21:42
PROVIDERS: ADMIT Family Medicine; ATTEND Internal Medicine
DX: N17.9 Acute kidney failure, unspecified (principal); R53.1 Weakness; N18.30 Chronic kidney disease, stage 3 unspecified; I12.9 Hypertensive chronic kidney disease with stage 1 through stage 4 chronic kidney disease, or unspecified chronic kidney disease; D63.1 Anemia in chronic kidney disease; D50.9 Iron deficiency anemia, unspecified; E78.00 Pure hypercholesterolemia, unspecified; Z68.38 Body mass index [BMI] 38.0-38.9, adult; G47.30 Sleep apnea, unspecified; G89.29 Other chronic pain; K21.9 Gastro-esophageal reflux disease without esophagitis; G43.909 Migraine, unspecified, not intractable, without status migrainosus; E66.9 Obesity, unspecified; H54.7 Unspecified visual loss; R29.704 NIHSS score 4; I95.9 Hypotension, unspecified; E86.0 Dehydration; F41.9 Anxiety disorder, unspecified; F32.A Depression, unspecified; N40.0 Benign prostatic hyperplasia without lower urinary tract symptoms; F17.210 Nicotine dependence, cigarettes, uncomplicated; M1A.9XX0 Chronic gout, unspecified, without tophus (tophi); M54.41 Lumbago with sciatica, right side; Z98.890 Other specified postprocedural states; Z86.73 Personal history of transient ischemic attack (TIA), and cerebral infarction without residual deficits; Z85.528 Personal history of other malignant neoplasm of kidney; Z79.891 Long term (current) use of opiate analgesic; Z79.82 Long term (current) use of aspirin; Z79.899 Other long term (current) drug therapy; Z79.02 Long term (current) use of antithrombotics/antiplatelets; Z87.11 Personal history of peptic ulcer disease; Z68.39 Body mass index [BMI] 39.0-39.9, adult; Z90.49 Acquired absence of other specified parts of digestive tract
CPT/HCPCS: 36415; 70450; 80053; 81001; 82800; 83605 ×2; 84145; 84484; 85025; 85610; 85730; 86140; 87040 ×2; 93005; 96360; 96361; 99285; C1758; J3490; J7030 ×2; 80048; 93010; 97110-GP; 97162-GP; 99232; 99239; A9270-GY